=== PATIENT | female | born 1970 | race Caucasian/White ===

== ENCOUNTER 2017-04-26 17:25 | Emergency (ER) | payer SELFPAY ==
[~2017-04-26] VITALS: Ht 170.2 cm; Wt 67.6 kg
[~2017-04-26 17:25] MED LIST: AC500T PO; ACDPT; ACDPT PO; ACHD5005 PO; ALBU8.5H4 IH; AMOX500C2 PO; ASCO1TAB17 PO; ASP81TEC PO; ASPI1TAB22 PO; ATOR20TA66 PO; BENZ-13 PO; CIPR500T78 PO; CPR500T PO; CYCL10TA9 PO; DICY10CA12 PO; DIPH25CA79 PO; DIPH50CA33 PO; HYDR-229 PO; HYDR1TAB PO; HYOS0.1216 PO; METH4TAB PO; MINO100C2 PO; MULT-884 PO; NAPR-243 PO; OMEG-160 PO; ONDA-42 SL; PRAV40TA PO; PRD20T PO; PRM12.5SU RC; PROP20TA5 PO; ROSU20TA14 PO; RT-ALBUINH IH; TRAM50TA2 PO
[2017-04-26] MEDS ORDERED: ACET-2469 PO (18:08)
--- NOTE | 2017-04-26 18:36 | ED Integumentary General ---
General Chief Complaint: Bite-Animal/Human/Insect Stated Complaint: SPIDER BITE UNDER LEFT BREAST Nursing Triage Note: COMPLAINS OF BITE UNDERNEATH LEFT BREAST. STATES IT IS PAINFUL AND CAUSING HER BREAST TO SWELL. FIRST NOTICED IT TODAY. TOOK IBUPROFEN 600MG PO AT 1330. Source: patient Exam Limitations: no limitations History of Present Illness Time seen by provider: 18:19 Initial Comments This 47-year-old woman presents to the emergency room with a painful lesion on the left lower breast that was first noticed this morning. She she also noticed systemic symptoms of feeling flushed, nauseated, and woozy. She believes this may be a spider bite. She denies any fevers. Allergies and Home Medications Allergies Coded Allergies: morphine (Verified Allergy, Intermediate, HIVES, SOA, PANCREAS SHUT DOWN, 02/20/16) egg (Verified Allergy, Unknown, 02/20/16) FROM UNCODED ALLERGY hydromorphone (Verified Allergy, Unknown, 04/26/17) tuberculin, purified protein deriva (Verified Allergy, Unknown, 02/20/16) Home Medications Acetaminophen/Diphenhydramine 1 Each Tablet, 2 EACH PO for SLEEP, (Reported) Sulfamethoxazole/Trimethoprim 1 Each Tablet, 1 EACH PO BID, #20 Prescribed by: ARIELLE TORRES on 04/26/17 1842 Constitutional: see HPI EENTM: no symptoms reported Respiratory: no symptoms reported Cardiovascular: no symptoms reported Gastrointestinal: see HPI Genitourinary: no symptoms reported Musculoskeletal: no symptoms reported Skin: see HPI Psychiatric/Neurological: No Symptoms Reported Past Xxkpjej-[id number]-Lgiynb Hx Patient Social History Alcohol Use: Denies Use Recreational Drug Use: No Smoking Status: Current Everyday Smoker Type Used: Cigarettes Recent Foreign Travel: No Contact w/Someone Who Travel: No Recent Infectious Disease Expo: No Recent Hopitalizations: Yes (2015, EARLY THIS YEAR) Immunizations Up To Date Tetanus Booster (TDap): Unknown PED Vaccines UTD: No Seasonal Allergies Seasonal Allergies: No Surgeries HX Surgeries: Yes (EGD, OVARIAN CYST REMOVAL) Surgeries: Appendectomy, Cardiac, Gallbladder, Hysterectomy, Oophorectomy Respiratory Hx Respiratory Disorders: No Cardiovascular Hx Cardiac Disorders: Yes (CATH corey) Cardiac Disorders: Coronary Artery Disease, High Cholesterol Neurological Hx Neurological Disorders: Yes Neurological Disorders: Headaches /Migraines Reproductive System Hx Reproductive Disorders: Yes (FIBROIDS) Female 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 Genitourinary Hx Genitourinary Disorders: No Gastrointestinal Hx Gastrointestinal Disorders: No Musculoskeletal Hx Musculoskeletal Disorders: No Endocrine Hx Endocrine Disorders: No HEENT HX ENT Disorders: No Cancer Hx Cancer: No Psychosocial Hx Psychiatric Problems: Yes Behavioral Health Disorders: Anxiety Integumentary HX Skin/Integumentary Disorder: No Blood Transfusions Hx Blood Disorders: No Family Medical History Significant Family History: CAD Under 55 Years Old, Diabetes Family Medial History: Cardiovascular disease Coronary thrombosis Physical Exam Vital Signs Vital Sign - Last 12Hours 04/26/17 17:55 Temp 95.7 Pulse 97 Resp 16 B/P (MAP) 170/93 Pulse Ox 99 O2 Delivery Room Air Capillary Refill : Less Than 3 Seconds General Appearance: WD/WN, no apparent distress HEENT: normal ENT inspection Neck: normal inspection Cardiovascular: regular rate, rhythm, no edema, no murmur Respiratory: lungs clear, normal breath sounds, no respiratory distress, no accessory muscle use Extremities: normal inspection 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, no motor/sensory deficits, alert, normal mood/affect, oriented x 3 Skin: warm/dry, other (2-3 cm erythematous tender lesion with a small white center on the lower left breast.) Skin Problem Location: other (left lower breast) Skin Problem Character: blanching, erythema, lesion, tenderness Progress/Results/Core Measures Results/Orders Vital Signs/I&O Vital Sign - Last 12Hours 04/26/17 04/26/17 17:55 18:48 Temp 95.7 Pulse 97 93 Resp 16 16 B/P (MAP) 170/93 Pulse Ox 99 97 O2 Delivery Room Air Blood Pressure Mean: 118 Progress Note : Progress Note The lesion described could be a spider bite or cellulitis. Bedside ultrasound showed a scant amount of fluid a few millimeters beneath the surface but no drainable abscess. The scant fluid could represent simple edema. Patient reports being up-to-date on her immunizations. Departure Impression Impression: Primary Impression: Cellulitis of breast Disposition: 01 HOME, SELF-CARE Condition: Stable Departure-Patient Inst. Decision time for Depature: 18:35 Referrals: [facility] (PCP/Family) Primary Care Physician Patient Instructions: Cellulitis (Skin Infection), Adult (DC), Spider Bites Add. Discharge Instructions: Monitor your wound closely. If you have significantly worsening symptoms, please return to care promptly. If you develop fevers greater than 100 or begin feeling very ill, return to care promptly. Expect the area of erythema to increase somewhat while the antibiotics are taking effect. By 24 hours into your treatment, the affected area should be stable. If an abscess or head develops, warm compresses may help the abscess drain. Complete the entire course of your antibiotics as prescribed. All discharge instructions reviewed with patient and/or family. Voiced understanding. Scripts Sulfamethoxazole/Trimethoprim (Bactrim Ds Tablet) 1 Each Tablet 1 EACH PO BID, #20 TAB Prov: ARIELLE CAMPUZANO MD 04/26/17 ARIELLE CAMPUZANO MD Apr 26, 2017 18:36
[2017-04-26] MEDS ORDERED: SULF1TAB35 PO (18:42)
[2017-04-26 18:48] VITALS: BP 167/97
== END 2017-04-26 18:48 | disposition home or self-care (01) ==
LOC: EDUNIT# 17:25 → ER 17:26
DX: N61.0 Mastitis without abscess (principal); F41.9 Anxiety disorder, unspecified; G43.909 Migraine, unspecified, not intractable, without status migrainosus; I25.10 Atherosclerotic heart disease of native coronary artery without angina pectoris; E78.00 Pure hypercholesterolemia, unspecified; F17.210 Nicotine dependence, cigarettes, uncomplicated; Z90.49 Acquired absence of other specified parts of digestive tract; Z90.710 Acquired absence of both cervix and uterus; Z87.2 Personal history of diseases of the skin and subcutaneous tissue
CPT/HCPCS: 99283

== ENCOUNTER 2018-09-23 10:05 | Emergency (ER) | payer SELFPAY ==
[~2018-09-23] VITALS: Ht 170.2 cm; Wt 67.6 kg
[~2018-09-23 10:05] MED LIST changes: +ACET-2469 PO; +ASPI-789 PO; -ASPI1TAB22 PO; +BENZ100C18 PO; +SULF1TAB35 PO
[2018-09-23] MEDS ORDERED: NS IV 1000 ML 1,000 ML IV ONE (10:51)
[2018-09-23 10:57] LABS: BASOPHILS % (AUTO) 0 % (0-10); EOSINOPHILS # (AUTO) 0.1 10^3/uL (0.0-0.3); EOSINOPHILS % (AUTO) 1 % (0-10); HEMATOCRIT 39 % (35-52); HEMOGLOBIN 13.1 G/DL (11.5-16.0); LYMPHOCYTES # (AUTO) 4.2 X 10^3 (1.0-4.0); LYMPHOCYTES % (AUTO) 41 % (12-44); MEAN CORPUSCULAR HEMOGLOBIN 31 PG (25-34); MEAN CORPUSCULAR HGB CONC 33 G/DL (32-36); MEAN CORPUSCULAR VOLUME 92 FL (80-99); MEAN PLATELET VOLUME 10.7 FL (7.4-10.4); MONOCYTES # (AUTO) 0.7 X 10^3 (0.0-1.0); MONOCYTES % (AUTO) 7 % (0-12); NEUTROPHILS % (AUTO) 50 % (42-75); PLATELET COUNT 361 10^3/uL (130-400); RED BLOOD COUNT 4.26 10^6/uL (4.35-5.85); RED CELL DISTRIBUTION WIDTH 13.4 % (10.0-14.5); WHITE BLOOD COUNT 10.1 10^3/uL (4.3-11.0)
[2018-09-23] MEDS ORDERED: fentaNYL INJECTION 100 MCG/2 ML AMP IVP ONE (11:00)
[2018-09-23] MEDS ORDERED: ONDANSETRON 4 MG/2 ML (SDV) Z0FRAN IVP ONE (11:00)
[2018-09-23 11:09] LABS: ALANINE AMINOTRANSFERASE 17 U/L (0-55); ALBUMIN 4.7 GM/DL (3.2-4.5); ALKALINE PHOSPHATASE 114 U/L (40-136); BILIRUBIN,TOTAL 0.3 MG/DL (0.1-1.0); BUN/CREATININE RATIO 16; CALCIUM 9.8 MG/DL (8.5-10.1); CARBON DIOXIDE 24 MMOL/L (21-32); CHLORIDE 103 MMOL/L (98-107); CREATININE SERUM 0.85 MG/DL (0.60-1.30); GFR ESTIMATED > 60; GLUCOSE 98 MG/DL (70-105); LIPASE 26 U/L (8-78); POTASSIUM 4.2 MMOL/L (3.6-5.0); SODIUM 139 MMOL/L (135-145); TOTAL PROTEIN 8.1 GM/DL (6.4-8.2)
[2018-09-23] MEDS ORDERED: FAMOTIDINE 20MG/2ML IV (PEPCID) IV STA (11:36)
[2018-09-23] MEDS ORDERED: LIDOCAINE 2% VISCOUS 15 ML UDC PO ONE (11:45)
[2018-09-23] MEDS ORDERED: ANTACID SUSP 30 ML UDC (MYLANTA) PO ONE (11:45)
--- NOTE | 2018-09-23 12:55 | ED Abdominal Pain ---
General Chief Complaint: Abdominal/GI Problems Stated Complaint: ABD/BACK PAIN Nursing Triage Note: AMB TO ROOM C/O EPIGASTRIC PAIN SINCE THIS AM. Sepsis Screen: No Definite Risk Source of Information: Patient, Old Records Exam Limitations: No Limitations History of Present Illness Date Seen by Provider: Sep 23, 2018 Time Seen by Provider: 10:09 Initial Comments This 48-year-old woman presents to the emergency room with complaints of upper abdominal pain focused in the epigastric region, nausea and vomiting, and heartburn pain radiating up into the chest. She states this feels similar to when she had pancreatitis. She denies any alcohol consumption. She denies any constipation or diarrhea. She is afebrile. Pain has been present in recent days and became severe this morning. She has history of acid reflux disease but only takes when necessary [id number] medications. She is hollering out because of the pain. Allergies and Home Medications Allergies Coded Allergies: morphine (Verified Allergy, Intermediate, HIVES, SOA, PANCREAS SHUT DOWN, 02/20/16) egg (Verified Allergy, Unknown, 02/20/16) FROM UNCODED ALLERGY hydromorphone (Verified Allergy, Unknown, 04/26/17) tuberculin, purified protein deriva (Verified Allergy, Unknown, 02/20/16) Home Medications Acetaminophen/Diphenhydramine 1 Each Tablet, 2 EACH PO for SLEEP, (Reported) Famotidine 20 Mg Tablet, 20 MG PO BID Prescribed by: ARIELLE TORRES on 09/23/18 1305 Omeprazole 20 Mg Tablet.dr, 20 MG PO DAILY Prescribed by: ARIELLE TORRES on 09/23/18 1305 Ondansetron 4 Mg Tab.rapdis, 4 MG PO Q4H PRN for NAUSEA/VOMITING Prescribed by: ARIELLE TORRSE on 09/23/18 1305 Sulfamethoxazole/Trimethoprim 1 Each Tablet, 1 EACH PO BID Prescribed by: ARIELLE TORRES on 04/26/17 4159 Patient Home Medication List Home Medication List Reviewed: Yes Review of Systems Review of Systems Constitutional: no symptoms reported EENTM: No Symptoms Reported Respiratory: No Symptoms Reported Cardiovascular: No Symptoms Reported Gastrointestinal: See HPI Genitourinary: No Symptoms Reported Musculoskeletal: no symptoms reported Skin: no symptoms reported Psychiatric/Neurological: No Symptoms Reported Endocrine: No Symptoms Reported Hematologic/Lymphatic: No Symptoms Reported Past Ldbtdzj-Neiqyr-[place] Hx Past Med/Social Hx: Reviewed and Corrections made Patient Social History Alcohol Use: Denies Use Recreational Drug Use: No Smoking Status: Current Everyday Smoker Type Used: Cigarettes Recent Foreign Travel: No Contact w/Someone Who Travel: No Recent Infectious Disease Expo: No Recent Hopitalizations: Yes (2016, EARLY THIS YEAR) Immunizations Up To Date Tetanus Booster (TDap): Unknown PED Vaccines UTD: No Seasonal Allergies Seasonal Allergies: No Past Medical History Surgeries: Yes (EGD, OVARIAN CYST REMOVAL) Appendectomy, Cardiac, Gallbladder, Hysterectomy, Oophorectomy Respiratory: No Currently Using CPAP: No Currently Using BIPAP: No Cardiac: Yes (CATH corey) Coronary Artery Disease, High Cholesterol Neurological: Yes Headaches /Migraines Reproductive Disorders: Yes (FIBROIDS) Female 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 0.0oz. 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, no motor/sensory deficits, alert, oriented x 3, other (anxious) Skin: normal color, warm/dry Progress/Results/Core Measures Results/Orders Lab Results Laboratory Tests Test 09/23/18 10:20 Range/Units White Blood Count 10.1 4.3-11.0 10^3/uL Red Blood Count 4.26 L 4.35-5.85 10^6/uL Hemoglobin 13.1 11.5-16.0 G/DL Hematocrit 39 35-52 % Mean Corpuscular Volume 92 80-99 FL Mean Corpuscular Hemoglobin 31 25-34 PG Mean Corpuscular Hemoglobin Concent 33 32-36 G/DL Red Cell Distribution Width 13.4 10.0-14.5 % Platelet Count 361 130-400 10^3/uL Mean Platelet Volume 10.7 H 7.4-10.4 FL Neutrophils (%) (Auto) 50 42-75 % Lymphocytes (%) (Auto) 41 12-44 % Monocytes (%) (Auto) 7 0-12 % Eosinophils (%) (Auto) 1 0-10 % Basophils (%) (Auto) 0 0-10 % Neutrophils # (Auto) 5.0 1.8-7.8 X 10^3 Lymphocytes # (Auto) 4.2 H 1.0-4.0 X 10^3 Monocytes # (Auto) 0.7 0.0-1.0 X 10^3 Eosinophils # (Auto) 0.1 0.0-0.3 10^3/uL Basophils # (Auto) 0.0 0.0-0.1 10^3/uL Sodium Level 139 135-145 MMOL/L Potassium Level 4.2 3.6-5.0 MMOL/L Chloride Level 103 98-107 MMOL/L Carbon Dioxide Level 24 21-32 MMOL/L Anion Gap 12 5-14 MMOL/L Blood Urea Nitrogen 14 7-18 MG/DL Creatinine 0.85 0.60-1.30 MG/DL Estimat Glomerular Filtration Rate > 60 BUN/Creatinine Ratio 16 Glucose Level 98 70-105 MG/DL Calcium Level 9.8 8.5-10.1 MG/DL Corrected Calcium 8.5-10.1 MG/DL Total Bilirubin 0.3 0.1-1.0 MG/DL Aspartate Amino Transf (AST/SGOT) 24 5-34 U/L Alanine Aminotransferase (ALT/SGPT) 17 0-55 U/L Alkaline Phosphatase 114 40-136 U/L Total Protein 8.1 6.4-8.2 GM/DL Albumin 4.7 H 3.2-4.5 GM/DL Lipase 26 8-78 U/L My Orders Orders - ARIELLE CAMPUZANO MD Cbc With Automated Diff (12/26/18 10:51) Comprehensive Metabolic Panel (09/23/18 10:51) Lipase (09/23/18 10:51) Saline Lock/Iv-Start (09/23/18 10:51) Ns Iv 1000 Ml (Sodium Chloride 0.9%) (09/23/18 10:51) Fentanyl Injection (Sublimaze Injection (09/23/18 11:00) Ondansetron Injection (Zofran Injectio (09/23/18 11:00) Lidocaine 2% Viscous 15 Ml (Xylocaine Vi (09/23/18 11:45) Famotidine Injection (Pepcid Injection) (09/23/18 11:36) Antacid Suspension (Mylanta Suspension (09/23/18 11:45) Medications Given in ED Vital Signs/I&O 09/23/18 09/23/18 10:12 13:09 Temp 96.6 Pulse 103 89 Resp 18 18 B/P (MAP) 139/98 (112) 142/89 (106) Pulse Ox 100 98 O2 Delivery Room Air Blood Pressure Mean: 112 Progress Progress Note : Progress Note Patient was initially treated with fentanyl, Zofran, and IV normal saline. The labs were grossly unremarkable. Fentanyl resolve the pain but tenderness was still present on repeat examination. GI cocktail and Pepcid were then given. This resolved her tenderness. See discharge instructions. Departure Impression Primary Impression: Epigastric pain Additional Impression: Nausea and vomiting Qualified Codes: R11.2 - Nausea with vomiting, unspecified Disposition: 01 HOME, SELF-CARE Condition: Against Medical Advice Departure-Patient Inst. Referrals: [facility] (PCP/Family) Primary Care Physician Patient Instructions: Acute Abdomen (Belly Pain), Adult (DC), Gastritis (DC) Add. Discharge Instructions: Use omeprazole and Pepcid as prescribed. Follow-up with your primary care provider soon as possible. Please call today to schedule an appointment. Return to care promptly if you have worsening symptoms. Avoid the following: Eating close to bedtime, eating large meals, caffeine, carbonation, chocolate, citrus fruits and juices, tomato products, tobacco products, alcohol, mints, fatty or greasy foods, spicy foods, NSAID medications such as ibuprofen or naproxen, and anything else you know irritates your stomach. All discharge instructions reviewed with patient and/or family. Voiced understanding. Scripts Omeprazole (Omeprazole) 20 Mg Tablet. 20 MG PO DAILY, #30 TAB Prov: ARIELLE CAMPUZANO MD 09/23/18 Ondansetron (Ondansetron Odt) 4 Mg Tab.rapdis 4 MG PO Q4H PRN for NAUSEA/VOMITING, #10 TAB Prov: ARIELLE CAMPUZANO MD 09/23/18 Famotidine (Pepcid) 20 Mg Tablet 20 MG PO BID, #60 TAB Prov: ARIELLE CAMPUZANO MD 09/23/18 Copy Copies To 1: EUGENE GIL JOSHUA T MD Sep 23, 2018 12:55
[2018-09-23] MEDS ORDERED: ONDA4TAB11 PO (13:05)
[2018-09-23] MEDS ORDERED: FAMO-119 PO (13:05)
[2018-09-23] MEDS ORDERED: OMEP20TA7 PO (13:05)
[2018-09-23 13:09] VITALS: BP 142/89
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
== END 2018-09-23 13:09 | disposition home or self-care (01) ==
LOC: EDUNIT# 10:05 → ER 10:07
DX: R10.13 Epigastric pain (principal); R11.2 Nausea with vomiting, unspecified; K21.9 Gastro-esophageal reflux disease without esophagitis; F17.210 Nicotine dependence, cigarettes, uncomplicated; I25.10 Atherosclerotic heart disease of native coronary artery without angina pectoris; E78.00 Pure hypercholesterolemia, unspecified; G43.909 Migraine, unspecified, not intractable, without status migrainosus; F41.9 Anxiety disorder, unspecified; Z90.710 Acquired absence of both cervix and uterus; Z90.49 Acquired absence of other specified parts of digestive tract; Z88.5 Allergy status to narcotic agent; Z88.8 Allergy status to other drugs, medicaments and biological substances; Z91.012 Allergy to eggs
CPT/HCPCS: 36415; 80053; 83690; 85025; 96374; 96375

== ENCOUNTER 2018-12-27 18:53 | Emergency (ER) | payer OTHER ==
[~2018-12-27] VITALS: Ht 170.2 cm; Wt 67.6 kg
[~2018-12-27 18:53] MED LIST changes: +FAMO-119 PO; +OMEP20TA7 PO; +ONDA4TAB11 PO
[2018-12-27] MEDS ORDERED: KETOROLAC 30 MG/ML VIAL IVP STA (19:15)
[2018-12-27] MEDS ORDERED: ORPHENADRINE 60 MG/2 ML (NORFLEX) AMP IV STA (19:15)
--- NOTE | 2018-12-27 19:53 | Diagnostic Imaging Report ---
PROCEDURE: CT cervical spine without contrast. TECHNIQUE: Multiple contiguous axial images were obtained through the cervical spine without the use of intravenous contrast. Sagittal and coronal reformations were then performed. Auto Exposure Controls were utilized during the CT exam to meet ALARA standards for radiation dose reduction. INDICATION: Neck pain and stiffness There is normal height and alignment of the cervical vertebral bodies. There is disc space narrowing and mild spondylosis at C5-6. No disc herniation or central canal stenosis is seen at any level. There is some foraminal narrowing bilaterally at C5-6 and on the left at C4-5. There is no fracture. IMPRESSION: There are degenerative changes present with spondylosis causing bilateral foraminal narrowing at C5-6 and left foraminal narrowing at C4-5. Dictated by: Dictated on workstation # [id number]
--- NOTE | 2018-12-27 20:03 | Diagnostic Imaging Report ---
PROCEDURE: CT thoracic and lumbar spine without contrast. TECHNIQUE: Multiple contiguous axial images were obtained through the thoracic and lumbar spine without the use of intravenous contrast. Sagittal and coronal reformations were then performed. INDICATION: Back pain There is normal height and alignment of the thoracolumbar vertebral bodies. There is mild disc space narrowing at L2-3 through L4-5. No disc herniation or bony stenosis is evident at this or any other level. There is no fracture. There is no bony lesion. There is no soft tissue mass. IMPRESSION: There are mild degenerative changes in the lumbar spine with no acute abnormality seen. Dictated by: Dictated on workstation # [id number]
[2018-12-27] MEDS ORDERED: RX-CYCLOBENZAPRINE 10 MG (FLEXERIL) TAB PPK#3 PO STA (20:22)
[2018-12-27] MEDS ORDERED: RX-TRAMADOL 50 MG (ULTRAM) TAB PPK#4 PO STA (20:22)
[2018-12-27] MEDS ORDERED: METH4TAB PO (20:29)
[2018-12-27] MEDS ORDERED: TRAM-42 PO (20:29)
[2018-12-27] MEDS ORDERED: CYCL10TA9 PO (20:29)
--- NOTE | 2018-12-27 20:29 | ED Neck-Back Pain/Injury ---
General Chief Complaint: Head/Cervical Problems Stated Complaint: NECK/SPINAL PAIN,MIGRAINE Nursing Triage Note: pt had right upper back muscle spasms over the past few days. during the night last night she turned over in bed et had severe neck pain. with certain movement today, she has shocking sensation up et down spine. hx degenerative disc disease in neck. tingling in right leg et hands Nursing Sepsis Screen: No Definite Risk Allergies and Home Medications Allergies Coded Allergies: morphine (Verified Allergy, Intermediate, HIVES, SOA, PANCREAS SHUT DOWN, 02/20/16) egg (Verified Allergy, Unknown, 02/20/16) FROM UNCODED ALLERGY hydromorphone (Verified Allergy, Unknown, 04/26/17) tuberculin, purified protein deriva (Verified Allergy, Unknown, 02/20/16) Home Medications Acetaminophen/Diphenhydramine 1 Each Tablet, 2 EACH PO for SLEEP, (Reported) Famotidine 20 Mg Tablet, 20 MG PO BID Prescribed by: ARIELLE TORRES on 09/23/18 1305 Omeprazole 20 Mg Tablet.dr, 20 MG PO DAILY Prescribed by: ARIELLE TORRES on 09/23/18 1305 Ondansetron 4 Mg Tab.rapdis, 4 MG PO Q4H PRN for NAUSEA/VOMITING Prescribed by: ARIELLE TORRES on 09/23/18 1305 Sulfamethoxazole/Trimethoprim 1 Each Tablet, 1 EACH PO BID Prescribed by: ARIELLE TORRES on 04/26/17 1842 Past Xeqvimg-Fhrvms-Unhogc Hx Patient Social History Alcohol Use: Denies Use Recreational Drug Use: No Smoking Status: Current Everyday Smoker Type Used: Cigarettes Recent Foreign Travel: No Contact w/Someone Who Travel: No Recent Infectious Disease Expo: No Recent Hopitalizations: No Immunizations Up To Date Tetanus Booster (TDap): Unknown PED Vaccines UTD: No Seasonal Allergies Seasonal Allergies: No Past Medical History Surgeries: Yes (EGD, OVARIAN CYST REMOVAL) Appendectomy, Cardiac, Gallbladder, Hysterectomy, Oophorectomy Respiratory: No Currently Using CPAP: No Currently Using BIPAP: No Cardiac: Yes (CATH corey) Coronary Artery Disease, Heart Attack, High Cholesterol Neurological: Yes Headaches /Migraines Reproductive Disorders: Yes (FIBROIDS) Female 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 0.0oz. 67.859147el; 24.4 BMI Method:Stated Progress/Results/Core Measures Results/Orders My Orders Orders - MICHAEL SHAFER DO Saline Lock/Iv-Start (12/27/18 19:15) Ketorolac Injection (Toradol Injection) (12/27/18 19:15) Orphenadrine Injection (Norflex Injectio (12/27/18 19:15) Ct Cervical Spine Wo (12/27/18 19:15) Ct Thoracic/Lumbar Spine Wo (12/27/18 ) Rx-Cyclobenzaprine Tablet (Rx-Flexeril T (12/27/18 20:22) Rx-Tramadol Hcl (Rx-Ultram) (12/27/18 20:22) Prednisone Tablet (Deltasone Tablet) (12/27/18 20:30) Vital Signs/I&O 12/27/18 19:07 Temp 98.2 Pulse 114 Resp 16 B/P (MAP) 157/89 (111) Pulse Ox 96 O2 Delivery Room Air Blood Pressure Mean: 111 Departure Impression Primary Impression: NECK AND BACK PAIN AND MUSCLE SPASMS Disposition: 01 HOME, SELF-CARE Condition: Stable Departure-Patient Inst. Referrals: [facility] (PCP) Primary Care Physician OSWMYA ESQUEDA (Family) Primary Care Physician Patient Instructions: Chronic Neck Pain (DC), Low Back Pain (DC), Muscle Spasms (DC) Add. Discharge Instructions: MOIST HEAT TO SORE AREAS AT 20 MINUTE INTERVALS ACTIVITIES TOLERATED FOLLOW UP WITH YOUR DR IN 2-3 DAYS IF NO BETTER All discharge instructions reviewed with patient and/or family. Voiced understanding. Scripts Tramadol HCl (Ultram) 50 Mg Tablet 50 MG PO Q4H, #20 TAB Prov: MICHAEL SHAFER DO 12/27/18 Methylprednisolone (Medrol) 4 Mg Tab.ds.pk 4 MG PO UD, #1 PKG Prov: MICHAEL SHAFER DO 12/27/18 Cyclobenzaprine HCl (Cyclobenzaprine HCl) 10 Mg Tablet 10 MG PO Q8H, #15 TAB Prov: MICHAEL SHAFER DO 12/27/18 MICHAEL SHAFER DO Dec 27, 2018 20:29
[2018-12-27] MEDS ORDERED: predniSONE 20 MG TAB PO ONE (20:30)
[2018-12-27 20:40] VITALS: BP 169/89
== END 2018-12-27 20:40 | disposition home or self-care (01) ==
LOC: EDUNIT# 18:53 → ER 18:55
DX: M54.2 Cervicalgia (principal); M62.830 Muscle spasm of back; I25.10 Atherosclerotic heart disease of native coronary artery without angina pectoris; I25.2 Old myocardial infarction; E78.00 Pure hypercholesterolemia, unspecified; G43.909 Migraine, unspecified, not intractable, without status migrainosus; F41.9 Anxiety disorder, unspecified; K21.9 Gastro-esophageal reflux disease without esophagitis; F17.210 Nicotine dependence, cigarettes, uncomplicated; Z88.5 Allergy status to narcotic agent; Z82.49 Family history of ischemic heart disease and other diseases of the circulatory system; Z87.19 Personal history of other diseases of the digestive system; Z87.448 Personal history of other diseases of urinary system; Z95.9 Presence of cardiac and vascular implant and graft, unspecified; Z88.8 Allergy status to other drugs, medicaments and biological substances; Z98.890 Other specified postprocedural states; Z90.49 Acquired absence of other specified parts of digestive tract; Z90.710 Acquired absence of both cervix and uterus
CPT/HCPCS: 72125; 72128; 72131; 96374

== ENCOUNTER 2019-05-09 11:11 | Emergency (ER) | payer OTHER ==
[~2019-05-09] VITALS: Ht 170.2 cm; Wt 67.6 kg
[~2019-05-09 11:11] MED LIST changes: +TRAM-42 PO
--- OUTSIDE RECORDS SUMMARY | 2019-05-09 11:17 | XMS REPORT ---
Author Author Migration, Doctor Organization [facility] Address Unknown Phone Unavailable Care Team Providers Care Sales Developer Name Role Phone Migration, Doctor Unavailable Unavailable PROBLEMS Type Condition ICD9-CM Code [id number] Code Onset Dates Condition Status SNOMED Code Problem Family history of diabetes mellitus V18.0 Active 613903272 Problem Coronary artery disease involving lower brule coronary artery of lower brule heart, angina presence unspecified I25.10 Active 2553633288847 Problem Other, multiple, and unspecified sites, insect bite, nonvenomous, without mention of infection 919.4 Active 744418713 Problem Family history of other cardiovascular diseases V17.49 Active 280174709 Problem Cough 786.2 Active 19123243 Problem Abdominal pain, generalized 789.07 Active 841518823 Problem Unspecified pruritic disorder 698.9 Active 856671282 Problem Symptomatic menopausal or female climacteric states 627.2 Active 74282685 Problem Urinary tract infection, site not specified 599.0 Active 96046955 Problem Other and unspecified hyperlipidemia 272.4 Active 01626312 Problem Fever, unspecified 780.60 Active 863317317 Problem Scabies 133.0 Active 419568829 Problem Palpitations 785.1 Active 63382628 Problem Coronary atherosclerosis of unspecified type of vessel, lower brule or graft 414.00 Active 078349170 Problem Other and unspecified angina pectoris 413.9 Active 306057537 Problem Migraine with aura, without mention of intractable migraine without mention of status migrainosus 346.00 Active 9498477 Problem Persistent disorder of initiating or maintaining sleep 307.42 Active 39232759 ALLERGIES No Information ENCOUNTERS Encounter Location Date Diagnosis [facility] [address] [address] Feb, [facility] [address] [address] January, [facility] [id number] [address] Mar, [facility] [place] [facility] [address] [id number] [place] [address] 14 Dec, 2014 [facility] [place] [facility] [address] [id number] [place] [address] 13 Dec, 2014 [facility] [place] [facility] [address] [id number] [place] [address] 19 Aug, 2014 [facility] [place] [facility] [address] [id number] [place] [address] Aug, [facility] [place] [facility] [address] [id number] [place] [address] 16 Aug, 2014 [facility] [place] [facility] [address] [id number] [place] [address] Aug, [facility] [place] [facility] [address] [id number] [place] [address] Aug, [facility] [place] [facility] [address] [id number] [place] [address] Jun, [facility] [place] [facility] [address] [id number] [place] [address] Jun, [facility] [place] [facility] [address] [id number] [place] [address] Jun, [facility] [place] [facility] [address] [id number] [place] [address] Jun, [facility] [place] [facility] [address] [id number] [place] [address] May, [facility] [place] [facility] [address] [id number] [place] [address] 11 May, 2014 [facility] [place] [facility] [address] [id number] [place] [address] Mar, [facility] [place] [facility] [address] [id number] [place] [address] Mar, [facility] [place] [facility] [address] [id number], [place] [address] Mar, [facility] [address] [facility] [place] [place] [id number] [place] [address] January, [facility] [address] [facility] [place] [id number], [place] [address] January, [facility] [address] [facility] [place] [id number] [place] [address] January, [facility] [address] [facility] [place] [id number] [address] January, [facility] [address] [facility] [place] [id number] [place] [address] January, [facility] [address] [facility] [place] [id number], [place] [address] Jul, [facility] [id number] [address] Jul, [facility] [address] [facility] [place] [id number], [place] [address] May, [facility] [address] [facility] [place] [id number], [place] [address] May, [facility] [address] [facility] [place] [id number], [place] [address] May, [facility] [address] [facility] [place] [id number], [place] [address] May, [facility] [address] [facility] [place] [id number] [address] May, [facility] [address] [facility] [place] [id number][place] [address] Apr, [facility] [address] [facility] [place] [id number][place] [address] Feb, [facility] [address] [facility] [place] [id number] [address] 14 Feb, 2013 IMMUNIZATIONS No Known Immunizations SOCIAL HISTORY Never Assessed REASON FOR VISIT [facility] PLAN OF CARE VITAL SIGNS MEDICATIONS Unknown Medications RESULTS No Results PROCEDURES No Known procedures INSTRUCTIONS MEDICATIONS ADMINISTERED No Known Medications MEDICAL (GENERAL) HISTORY Type Description Date Hospitalization History Chest pain 02/20/16
--- OUTSIDE RECORDS SUMMARY | 2019-05-09 11:17 | XMS REPORT ---
Author Author Migration, Doctor Organization [facility] Address Unknown Phone Unavailable Care Team Providers Care Plate Filler Name Role Phone Migration, Doctor Unavailable Unavailable PROBLEMS Type Condition ICD9-CM Code [id number] Code Onset Dates Condition Status SNOMED Code Problem Family history of diabetes mellitus V18.0 Active 000666483 Problem Coronary artery disease involving wrangell coronary artery of wrangell heart, angina presence unspecified I25.10 Active 3564455248768 Problem Other, multiple, and unspecified sites, insect bite, nonvenomous, without mention of infection 919.4 Active 918172776 Problem Family history of other cardiovascular diseases V17.49 Active 835853093 Problem Cough 786.2 Active 61253276 Problem Abdominal pain, generalized 789.07 Active 153606060 Problem Unspecified pruritic disorder 698.9 Active 204840887 Problem Symptomatic menopausal or female climacteric states 627.2 Active 47586838 Problem Urinary tract infection, site not specified 599.0 Active 29734667 Problem Other and unspecified hyperlipidemia 272.4 Active 04549077 Problem Fever, unspecified 780.60 Active 170999849 Problem Scabies 133.0 Active 482219651 Problem Palpitations 785.1 Active 20309713 Problem Coronary atherosclerosis of unspecified type of vessel, wrangell or graft 414.00 Active 225601133 Problem Other and unspecified angina pectoris 413.9 Active 447782233 Problem Migraine with aura, without mention of intractable migraine without mention of status migrainosus 346.00 Active 2114293 Problem Persistent disorder of initiating or maintaining sleep 307.42 Active 01617013 ALLERGIES Substance Reaction Event Type Date Status Morphine Unknown Drug Allergy Dec, Active ENCOUNTERS Encounter Location Date Diagnosis [facility] [address] [address] Feb, [facility] [id number] [address] January, [facility] [address] [address] 16 Mar, 2015 [facility] [place] [facility] [address] [id number] [place] [address] 14 Dec, 2014 [facility] [place] [facility] [address] [id number] [place] [address] 13 Dec, 2014 [facility] [place] [facility] [address] [id number] [place] [address] 19 Aug, 2014 [facility] [place] [facility] [address] [id number] [place] [address] 19 Aug, 2014 [facility] [place] [facility] [address] [id number] [place] [address] 16 Aug, 2014 [facility] [place] [facility] [address] [id number] [place] [address] 15 Aug, 2014 [facility] [place] [facility] [address] [id number] [place] [address] Aug, [facility] [place] [facility] [address] [id number] [place] [address] Jun, [facility] [place] [facility] [address] [id number] [place] [address] Jun, [facility] [place] [facility] [address] [id number] [place] [address] Jun, [facility] [place] [facility] [address] [id number] [place] [address] Jun, [facility] [place] [facility] [address] [id number] [place] [address] May, [facility] [place] [facility] [address] [id number] [place] [address] May, [facility] [place] [facility] [address] [id number] [place] [address] Mar, [facility] [place] [facility] [address] [facility] [id number] [place] [address] Mar, [facility] [place] [facility] [address] [id number] [place] [address] 08 Mar, 2014 [facility] [place] [facility] [address] [id number] [place] [address] January, [facility] [place] [facility] [address] [id number] [place] [address] January, [facility] [place] [facility] [address] [id number] [place] [address] January, [facility] [place] [facility] [address] [id number] [place] [address] January, [facility] [place] [facility] [address] [id number] [place] [address] January, [facility] [place] [facility] [address] [id number] [place] [address] Jul, [facility] [place] [facility] [address] [id number] [place] [address] Jul, [facility] [place] [facility] [address] [id number] [place] [address] May, [facility] [place] [facility] [address] [id number] [place] [address] May, [facility] [place] [facility] [address] [id number] [place] [address] 09 May, 2013 [facility] [place] [facility] [address] [id number] [place] [address] 06 May, 2013 [facility] [place] [facility] [address] [id number] [place] [address] 04 May, 2013 [facility] [place] [facility] [address] [id number] [place] [address] 08 Apr, 2013 [facility] [place] [facility] [address] [id number] [place] [address] Feb, [facility] [place] [facility] [address] [id number] [place] [address] Feb, IMMUNIZATIONS No Known Immunizations SOCIAL HISTORY Never Assessed REASON FOR VISIT [facility] [place] PLAN OF CARE VITAL SIGNS MEDICATIONS Medication Instructions Dosage Frequency Start Date End Date Duration Status Topamax 50 mg 1 Tablet by Oral route 2 times per day for headache Aug, Active Fioricet 50-325-40 mg 1-2 tablet by Oral route every 6 hours PRN not to exceed 6 tablets/day, 10/week Aug, Active PredniSONE 20 mg 3 tablet by Oral route 1 time per day for 5 day(s) Feb, Active Aspirin 81 mg 1 tablet by Oral route 1 time per day May, Active Elimite 5 % apply 1 Jose from head to soles of feet by Topical route once 1 time per week leave on for 8-14 hours and then wash thoroughly for 2 dose(s) Feb, Active Cipro 500 mg 1 tablet by Oral route every 12 hours for 5 day(s) antibiotic January, Active Crestor 40 mg take 1 tablet (40 mg) by oral route once daily at bedtime Jun, Active Fish Oil by oral route 2 a day May, Active Effexor XR 75 mg 1 capsule by Oral route 1 time per day Jun, Active Polytrim 0.1-10,000 %-unit/mL 2-3 drop by Otic route every 6 hours for 7 day(s) Do not fill until pt calls- use in left ear Feb, Active RESULTS No Results PROCEDURES No Known procedures INSTRUCTIONS MEDICATIONS ADMINISTERED No Known Medications MEDICAL (GENERAL) HISTORY Type Description Date Hospitalization History Chest pain 02/20/16
--- OUTSIDE RECORDS SUMMARY | 2019-05-09 11:17 | XMS REPORT ---
Author Author Migration, Doctor Organization [facility] Address Unknown Phone Unavailable Care Team Providers Care Linotyper Name Role Phone Migration, Doctor Unavailable Unavailable PROBLEMS Type Condition ICD9-CM Code SCG14-LI Code Onset Dates Condition Status SNOMED Code Problem Family history of diabetes mellitus V18.0 Active 047154523 Problem Coronary artery disease involving navajo coronary artery of navajo heart, angina presence unspecified I25.10 Active 4403583820829 Problem Other, multiple, and unspecified sites, insect bite, nonvenomous, without mention of infection 919.4 Active 831177078 Problem Family history of other cardiovascular diseases V17.49 Active 824608236 Problem Cough 786.2 Active 78667952 Problem Abdominal pain, generalized 789.07 Active 916896290 Problem Unspecified pruritic disorder 698.9 Active 680369201 Problem Symptomatic menopausal or female climacteric states 627.2 Active 79432517 Problem Urinary tract infection, site not specified 599.0 Active 38801316 Problem Other and unspecified hyperlipidemia 272.4 Active 44578305 Problem Fever, unspecified 780.60 Active 873435152 Problem Scabies 133.0 Active 092230461 Problem Palpitations 785.1 Active 50269101 Problem Coronary atherosclerosis of unspecified type of vessel, navajo or graft 414.00 Active 168579556 Problem Other and unspecified angina pectoris 413.9 Active 111086648 Problem Migraine with aura, without mention of intractable migraine without mention of status migrainosus 346.00 Active 6483737 Problem Persistent disorder of initiating or maintaining sleep 307.42 Active 54187694 ALLERGIES No Information ENCOUNTERS Encounter Location Date Diagnosis [facility] [address], [place] [address] Feb, [facility] [address], [place] [address] January, [facility] [id number], [place] [address] Mar, [facility] [place] [facility] [address] [id number] [place] [address] 14 Dec, 2014 [facility] [place] [facility] [address] [id number] [place] [address] 13 Dec, 2014 [facility] [place] [facility] [address] [id number] [place] [address] 19 Aug, 2014 [facility] [place] [facility] [address] [id number] [place] [address] Aug, [facility] [place] [facility] [address] [id number] [place] [address] 16 Aug, 2014 [facility] [place] [facility] [address] [id number] [place] [address] Aug, [facility] [place] [facility] [address] [id number] [place] [address] Aug, [facility] [place] [facility] [address] [id number] [place] [address] Jun, [facility] [place] [facility] [address] [id number] [place] [address] Jun, [facility] [place] [facility] [address] [id number] [place] [address] Jun, [facility] [place] [facility] [address] [id number] [place] [address] Jun, [facility] [place] [facility] [address] [id number] [place] [address] May, [facility] [place] [facility] [address] [id number] [place] [address] 11 May, 2014 [facility] [place] [facility] [address] [id number] [place] [address] Mar, [facility] [place] [facility] [address] [id number] [place] [address] Mar, [facility] [place] [facility] [address] [id number] [address] Mar, [facility] [address] [facility] [id number] [place] [address] January, [facility] [address] [facility] [id number] [address] January, [facility] [address] [facility] [id number] [place] [address] January, [facility] [address] [facility] [id number], [place] [address] January, [facility] [address] [facility] [id number] [place] [address] January, [facility] [address] [facility] [id number], [place] [address] Jul, [facility] [id number], [place] [address] Jul, [facility] [address] [facility] [id number], [place] [address] May, [facility] [address] [facility] [id number] [address] May, [facility] [address] [facility] [id number], [place] [address] May, [facility] [address] [facility] [id number] [address] May, [facility] [address] [facility] [id number], [place] [address] May, [facility] [address] [facility] [id number], [place] [address] Apr, [facility] [address] [facility] [id number], [place] [address] Feb, [facility] [address] [facility] [id number], [place] [address] 14 Feb, 2013 IMMUNIZATIONS No Known Immunizations SOCIAL HISTORY Never Assessed REASON FOR VISIT [facility] [place] PLAN OF CARE VITAL SIGNS MEDICATIONS Unknown Medications RESULTS No Results PROCEDURES No Known procedures INSTRUCTIONS MEDICATIONS ADMINISTERED No Known Medications MEDICAL (GENERAL) HISTORY Type Description Date Hospitalization History Chest pain 02/20/16
--- OUTSIDE RECORDS SUMMARY | 2019-05-09 11:19 | XMS REPORT | Continuity of Care Document ---
Author Organization Unknown Address Unknown Phone Unavailable Allergies Active Description Code Type Severity Reaction Onset Reported/Identified Relationship to Patient Clinical Status Yes morphine Drug Allergy N/A N/A 03/12/2013 Yes morphine [id number] Drug Allergy Moderate HIVES, SOA, MARTINEZ 02/20/2016 Yes egg [id number] Drug Allergy Unknown N/A 02/20/2016 Yes tuberculin, purified protein deriva [id number] Drug Allergy Unknown N/A 02/20/2016 Yes tuberculin,purif.prot.deriv. [id number] Drug Allergy Unknown N/A 02/20/2016 Yes hydromorphone [id number] Drug Allergy Unknown N/A 04/26/2017 Medications There is no data. Problems Date [...] EXAM, ROUTINE, AT HEALTH CARE FACILITY 10/13/2008 BULMARO ESQUEDA APRNNDA S V74.1 SCREENING EXAMINATION FOR PULMONARY TUBERCULOSIS 10/13/2008 SOWMYA ESQUEDA APRN S V70.0 GENERAL MEDICAL EXAM, ROUTINE, AT HEALTH CARE FACILITY 10/13/2008 BULMARO ESQUEDA APRNNDA S V74.1 SCREENING EXAMINATION FOR PULMONARY TUBERCULOSIS 10/13/2008 YIN CARTER, SOWMYA S V70.0 GENERAL MEDICAL EXAM, ROUTINE, AT HEALTH CARE FACILITY 10/13/2008 SOWMYA ESQUEDA APRN S V74.1 SCREENING EXAMINATION FOR PULMONARY TUBERCULOSIS 05/19/2010 Ot 272.4 HYPERLIPIDEMIA NEC/NOS 05/19/2010 Ot 305.1 TOBACCO USE DISORDER 05/19/2010 Ot 414.01 CORONARY ATHEROSCLEROSIS OF [place] CORON 05/19/2010 Ot 786.59 CHEST PAIN NEC 05/19/2010 Ot V17.3 FAM HX-ISCHEM HEART DIS 05/20/2010 Ot 789.03 ABDOMINAL PAIN, RIGHT LOWER QUADRANT 05/20/2010 Ot V45.89 POSTSURGICAL STATES NEC 08/23/2011 Ot 846.0 SPRAIN LUMBOSACRAL 08/23/2011 Ot 847.0 SPRAIN OF NECK 08/23/2011 Ot 847.1 SPRAIN THORACIC REGION 08/23/2011 Ot 920 CONTUSION FACE/SCALP/NCK 08/23/2011 Ot 959.01 HEAD INJURY, NOS 08/23/2011 Ot E000.8 OTHER EXTERNAL CAUSE STATUS 08/23/2011 Ot E812.1 MV COLLISION NOS-PASNGR 01/25/2012 Ot 346.90 MIGRAINE UNSPECIFIED W/O INTRACT MGRN W/ 01/25/2012 Ot 461.9 ACUTE SINUSITIS NOS 01/25/2012 Ot 784.0 HEADACHE 02/16/2012 Ot 466.0 ACUTE BRONCHITIS 02/16/2012 Ot 786.2 COUGH 03/25/2012 Ot 719.43 JOINT PAIN-FOREARM 03/25/2012 Ot 727.05 TENOSYNOV HAND/WRIST NEC 05/06/2012 [...] SCABIES 03/12/2013 698.9 PRURITUS NOS 03/12/2013 YIN COMPETENCY EVALUATED NURSE AIDE, SOWMYA S 133.0 SCABIES 03/12/2013 YIN CARTER, SOWMYA S 698.9 PRURITUS NOS 03/12/2013 GIL DO, EUGENE K 133.0 SCABIES 03/12/2013 GIL DO, EUGENE K 698.9 PRURITUS NOS 03/12/2013 ELIF COMPETENCY EVALUATED NURSE AIDE, KOREY R 133.0 SCABIES 03/12/2013 ELIF COMPETENCY EVALUATED NURSE AIDE, KOREY R 698.9 PRURITUS NOS 03/12/2013 YIN COMPETENCY EVALUATED NURSE AIDE, SOWMYA S 133.0 SCABIES 03/12/2013 YIN COMPETENCY EVALUATED NURSE AIDE, SOWMYA S 698.9 PRURITUS NOS 03/12/2013 YIN COMPETENCY EVALUATED NURSE AIDE, SOWMYA S 133.0 SCABIES 03/12/2013 YIN COMPETENCY EVALUATED NURSE AIDE, SOWMYA S 698.9 PRURITUS NOS 03/12/2013 YIN COMPETENCY EVALUATED NURSE AIDE, SOWMYA S 133.0 SCABIES 03/12/2013 YIN COMPETENCY EVALUATED NURSE AIDE, SOWMYA S 698.9 PRURITUS NOS 03/12/2013 YIN COMPETENCY EVALUATED NURSE AIDE, SOWMYA S 133.0 SCABIES 03/12/2013 YIN COMPETENCY EVALUATED NURSE AIDE, SOWMYA S 698.9 PRURITUS NOS 03/15/2013 919.4 INSECT BITE NONVENOMOUS OF OTHER MULTIPLE AND UNSPECIFIED SITES WITHOUT INFECTION 03/15/2013 919.4 INSECT BITE NONVENOMOUS OF OTHER MULTIPLE AND UNSPECIFIED SITES WITHOUT INFECTION 03/15/2013 YIN COMPETENCY EVALUATED NURSE AIDE, SOWMYA S 919.4 INSECT BITE NONVENOMOUS OF OTHER MULTIPLE AND UNSPECIFIED SITES WITHOUT INFECTION 03/15/2013 GIL DO, EUGENE K 919.4 INSECT BITE NONVENOMOUS OF OTHER MULTIPLE AND UNSPECIFIED SITES WITHOUT INFECTION 03/15/2013 ELIF COMPETENCY EVALUATED NURSE AIDE, KOREY R 919.4 INSECT BITE NONVENOMOUS OF OTHER MULTIPLE AND UNSPECIFIED SITES WITHOUT INFECTION 03/15/2013 YIN COMPETENCY EVALUATED NURSE AIDE, SOWMYA S 919.4 INSECT BITE NONVENOMOUS OF OTHER MULTIPLE AND UNSPECIFIED SITES WITHOUT INFECTION 03/15/2013 YIN COMPETENCY EVALUATED NURSE AIDE, SOWMYA S 919.4 INSECT BITE NONVENOMOUS OF OTHER MULTIPLE AND UNSPECIFIED SITES WITHOUT INFECTION 03/15/2013 YIN COMPETENCY EVALUATED NURSE AIDE, SOWMYA S 919.4 INSECT BITE NONVENOMOUS OF OTHER MULTIPLE AND UNSPECIFIED SITES WITHOUT INFECTION 03/15/2013 YIN COMPETENCY EVALUATED NURSE AIDE, SOWMYA S 919.4 INSECT BITE NONVENOMOUS OF OTHER MULTIPLE AND UNSPECIFIED SITES WITHOUT INFECTION 04/08/2013 ELIZABETH PUTNAM L Ot 346.90 MIGRAINE UNSPECIFIED W/O INTRACT MGRN W/ 04/08/2013 ELIZABETH PUTNAM L Ot 784.0 HEADACHE 05/06/2013 346.00 MIGRAINE WITH AURA WITHOUT MENTION OF INTRACTABLE MIGRAINE WITHOUT MENTION OF STATUS MIGRAINOSUS 05/06/2013 413.9 ANGINA NOS 05/06/2013 V17.49 FAMILY HISTORY OF OTHER CARDIOVASCULAR DISEASES 05/06/2013 V18.0 FAMILY HISTORY OF DIABETES MELLITUS 05/06/2013 YIN CARTER SOWMYA S 346.00 MIGRAINE WITH AURA WITHOUT MENTION OF INTRACTABLE MIGRAINE WITHOUT MENTION OF STATUS MIGRAINOSUS 05/06/2013 YIN COMPETENCY EVALUATED NURSE AIDE, SOWMYA S 413.9 ANGINA NOS 05/06/2013 YIN COMPETENCY EVALUATED NURSE AIDE, SOWMYA S V17.49 FAMILY HISTORY OF OTHER CARDIOVASCULAR DISEASES 05/06/2013 YIN COMPETENCY EVALUATED NURSE AIDE, SOWMYA S V18.0 FAMILY HISTORY OF DIABETES MELLITUS 05/06/2013 GIL DO, EUGENE K 346.00 MIGRAINE WITH AURA WITHOUT MENTION OF INTRACTABLE MIGRAINE WITHOUT MENTION OF STATUS MIGRAINOSUS 05/06/2013 GIL DO, EUGENE K 413.9 ANGINA NOS 05/06/2013 GIL DO, EUGENE K V17.49 FAMILY HISTORY OF OTHER CARDIOVASCULAR DISEASES 05/06/2013 GIL DO, EUGENE K V18.0 FAMILY HISTORY OF DIABETES MELLITUS 05/06/2013 ELIF COMPETENCY EVALUATED NURSE AIDE, KOREY R 346.00 MIGRAINE WITH AURA WITHOUT MENTION OF INTRACTABLE MIGRAINE WITHOUT MENTION OF STATUS MIGRAINOSUS 05/06/2013 ELIF COMPETENCY EVALUATED NURSE AIDE, KOREY R 413.9 ANGINA NOS 05/06/2013 ELIF COMPETENCY EVALUATED NURSE AIDE, KOREY R V17.49 FAMILY HISTORY OF OTHER CARDIOVASCULAR DISEASES 05/06/2013 ELIF COMPETENCY EVALUATED NURSE AIDE, KOREY R V18.0 FAMILY HISTORY OF DIABETES MELLITUS 05/06/2013 YIN COMPETENCY EVALUATED NURSE AIDE, SOWMYA S 346.00 MIGRAINE WITH AURA WITHOUT MENTION OF INTRACTABLE MIGRAINE WITHOUT MENTION OF STATUS MIGRAINOSUS 05/06/2013 YIN COMPETENCY EVALUATED NURSE AIDE, SOWMYA S 413.9 ANGINA NOS 05/06/2013 YIN COMPETENCY EVALUATED NURSE AIDE, SOWMYA S V17.49 FAMILY HISTORY OF OTHER CARDIOVASCULAR DISEASES 05/06/2013 YIN COMPETENCY EVALUATED NURSE AIDE, SOWMYA S V18.0 FAMILY HISTORY OF DIABETES MELLITUS 05/06/2013 YIN COMPETENCY EVALUATED NURSE AIDE, SOWMYA S 346.00 MIGRAINE WITH AURA WITHOUT MENTION OF INTRACTABLE MIGRAINE WITHOUT MENTION OF STATUS MIGRAINOSUS 05/06/2013 YIN COMPETENCY EVALUATED NURSE AIDE, SOWMYA S 413.9 ANGINA NOS 05/06/2013 YIN COMPETENCY EVALUATED NURSE AIDE, SOWMYA S V17.49 FAMILY HISTORY OF OTHER CARDIOVASCULAR DISEASES 05/06/2013 YIN COMPETENCY EVALUATED NURSE AIDE, SOWMYA S V18.0 FAMILY HISTORY OF DIABETES MELLITUS 05/06/2013 YIN COMPETENCY EVALUATED NURSE AIDE, SOWMYA S 346.00 MIGRAINE WITH AURA WITHOUT MENTION OF INTRACTABLE MIGRAINE WITHOUT MENTION OF STATUS MIGRAINOSUS 05/06/2013 YIN COMPETENCY EVALUATED NURSE AIDE, SOWMYA S 413.9 ANGINA NOS 05/06/2013 YIN COMPETENCY EVALUATED NURSE AIDE, SOWMYA S V17.49 FAMILY HISTORY OF OTHER CARDIOVASCULAR DISEASES 05/06/2013 YIN COMPETENCY EVALUATED NURSE AIDE, SOWMYA S V18.0 FAMILY HISTORY OF DIABETES MELLITUS 05/06/2013 YIN COMPETENCY EVALUATED NURSE AIDE, SOWMYA S 346.00 MIGRAINE WITH AURA WITHOUT MENTION OF INTRACTABLE MIGRAINE WITHOUT MENTION OF STATUS MIGRAINOSUS 05/06/2013 YIN COMPETENCY EVALUATED NURSE AIDE, SOWMYA S 413.9 ANGINA NOS 05/06/2013 YIN COMPETENCY EVALUATED NURSE AIDE, SOWMYA S V17.49 FAMILY HISTORY OF OTHER CARDIOVASCULAR DISEASES 05/06/2013 YIN COMPETENCY EVALUATED NURSE AIDE, SOWMYA S V18.0 FAMILY HISTORY OF DIABETES MELLITUS 08/06/2013 GIL DO, EUGENE K 272.4 DYSLIPIDEMIA 08/06/2013 GIL DO, EUGENE K 414.00 CAD 08/06/2013 GIL DO, EUGENE K 785.1 PALPITATIONS 08/06/2013 ELIF COMPETENCY EVALUATED NURSE AIDE, KOREY R 272.4 DYSLIPIDEMIA 08/06/2013 ELIF COMPETENCY EVALUATED NURSE AIDE, KOREY R 414.00 CAD 08/06/2013 ELIF COMPETENCY EVALUATED NURSE AIDE, KOREY R 785.1 PALPITATIONS 08/06/2013 YIN COMPETENCY EVALUATED NURSE AIDE, SOWMYA S 272.4 DYSLIPIDEMIA 08/06/2013 YIN COMPETENCY EVALUATED NURSE AIDE, SOWMYA S 414.00 CAD 08/06/2013 YIN COMPETENCY EVALUATED NURSE AIDE, SOWMYA S 785.1 PALPITATIONS 08/06/2013 YIN COMPETENCY EVALUATED NURSE AIDE, SOWMYA S 272.4 DYSLIPIDEMIA 08/06/2013 YIN COMPETENCY EVALUATED NURSE AIDE, SOWMYA S 414.00 CAD 08/06/2013 YIN COMPETENCY EVALUATED NURSE AIDE, SOWMYA S 785.1 PALPITATIONS 08/06/2013 YIN COMPETENCY EVALUATED NURSE AIDE, SOWMYA S 272.4 DYSLIPIDEMIA 08/06/2013 YIN COMPETENCY EVALUATED NURSE AIDE, SOWMYA S 414.00 CAD 08/06/2013 YIN COMPETENCY EVALUATED NURSE AIDE, SOWMYA S 785.1 PALPITATIONS 08/06/2013 YIN COMPETENCY EVALUATED NURSE AIDE, SOWMYA S 272.4 DYSLIPIDEMIA 08/06/2013 YIN COMPETENCY EVALUATED NURSE AIDE, SOWMYA S 414.00 CAD 08/06/2013 YIN COMPETENCY EVALUATED NURSE AIDE, SOWMYA S 785.1 PALPITATIONS 11/08/2013 ZITA WILLIAM, ROXANE Parikh Ot 785.1 PALPITATIONS 02/05/2014 ELIF COMPETENCY EVALUATED NURSE AIDE, KOREY R 599.0 URINARY TRACT INFECTION 02/05/2014 ELIF COMPETENCY EVALUATED NURSE AIDE, KOREY R 789.07 ABDOMINAL PAIN GENERALIZED 02/05/2014 YIN COMPETENCY EVALUATED NURSE AIDE, SOWMYA S 599.0 URINARY TRACT INFECTION 02/05/2014 YIN COMPETENCY EVALUATED NURSE AIDE, SOWMYA S 789.07 ABDOMINAL PAIN GENERALIZED 02/05/2014 YIN COMPETENCY EVALUATED NURSE AIDE, SOWMYA S 599.0 URINARY TRACT INFECTION 02/05/2014 YIN COMPETENCY EVALUATED NURSE AIDE, SOWMYA S 789.07 ABDOMINAL PAIN GENERALIZED 02/05/2014 YIN COMPETENCY EVALUATED NURSE AIDE, SOWMYA S 599.0 URINARY TRACT INFECTION 02/05/2014 YIN COMPETENCY EVALUATED NURSE AIDE, SOWMYA S 789.07 ABDOMINAL PAIN GENERALIZED 02/05/2014 YIN COMPETENCY EVALUATED NURSE AIDE, SOWMYA S 599.0 URINARY TRACT INFECTION 02/05/2014 YIN COMPETENCY EVALUATED NURSE AIDE, SOWMYA S 789.07 ABDOMINAL PAIN GENERALIZED 02/08/2014 NAILA WILLIAM, ELENA S Ot 540.9 ACUTE APPENDICITIS NOS 04/04/2014 ELIZABETH PUTNAM Ot 490 BRONCHITIS NOS 04/04/2014 ELIZABETH PUTNAM L Ot 724.5 BACKACHE NOS 04/04/2014 ELIZABETH PUTNAM Ot 780.60 FEVER, UNSPECIFIED 04/04/2014 ELIZABETH PUTNAM Ot 847.2 SPRAIN LUMBAR REGION 04/04/2014 ELIZABETH PUTNAM Ot E928.9 ACCIDENT NOS 04/07/2014 YIN COMPETENCY EVALUATED NURSE AIDE, SOWMYA S 780.60 FEVER, UNSPECIFIED 04/07/2014 YIN COMPETENCY EVALUATED NURSE AIDE, SOWMYA S 786.2 COUGH 04/07/2014 YIN COMPETENCY EVALUATED NURSE AIDE, SOWMYA S 780.60 FEVER, UNSPECIFIED 04/07/2014 YIN COMPETENCY EVALUATED NURSE AIDE, SOWMYA S 786.2 COUGH 04/07/2014 YIN COMPETENCY EVALUATED NURSE AIDE, SOWMYA S 780.60 FEVER, UNSPECIFIED 04/07/2014 YIN COMPETENCY EVALUATED NURSE AIDE, SOWMYA S 786.2 COUGH 04/07/2014 YIN COMPETENCY EVALUATED NURSE AIDE, SOWMYA S 780.60 FEVER, UNSPECIFIED 04/07/2014 YIN COMPETENCY EVALUATED NURSE AIDE, SWOMYA S 786.2 COUGH 06/09/2014 YIN COMPETENCY EVALUATED NURSE AIDE, SOWMYA S 307.42 INSOMNIA, PSYCHOPHYSIOLOGICAL 06/09/2014 YIN COMPETENCY EVALUATED NURSE AIDE, SOWMYA S 627.2 HOT FLASHES 06/09/2014 YIN COMPETENCY EVALUATED NURSE AIDE, SOWMYA S 307.42 INSOMNIA, PSYCHOPHYSIOLOGICAL 06/09/2014 YIN COMPETENCY EVALUATED NURSE AIDE, SOWMYA S 627.2 HOT FLASHES 06/09/2014 YIN COMPETENCY EVALUATED NURSE AIDE, SOWMYA S 307.42 INSOMNIA, PSYCHOPHYSIOLOGICAL 06/09/2014 YIN COMPETENCY EVALUATED NURSE AIDE, SOWMYA S 627.2 HOT FLASHES 09/12/2014 YIN COMPETENCY EVALUATED NURSE AIDE, SOWMYA S 346.00 MIGRAINE WITH AURA WITHOUT [...] INTRACT MGRN W/O STA 02/21/2016 SOWMYA ESQUEDA ACID STRENGTH INSPECTOR Ot 346.00 MIGRAINE W AURA W/O INTRACT MGRN W/O STA 02/21/2016 BECKIE REID MD Ot E78.5 HYPERLIPIDEMIA, UNSPECIFIED 02/21/2016 BECKIE REID MD Ot F17.210 NICOTINE DEPENDENCE, CIGARETTES, UNCOMPL 02/21/2016 BECKIE REID MD Ot I25.10 ATHSCL HEART DISEASE OF [place] CORONARY 02/21/2016 BECKIE REID MD Ot K21.9 GASTRO-ESOPHAGEAL REFLUX DISEASE WITHOUT 02/21/2016 BECKIE REID MD Ot R07.89 OTHER CHEST PAIN 02/21/2016 BECKIE REID MD Ot R51 HEADACHE 02/21/2016 BECKIE REID MD Ot E78.5 HYPERLIPIDEMIA, UNSPECIFIED 02/21/2016 BECKIE REID MD Ot F17.210 NICOTINE DEPENDENCE, CIGARETTES, UNCOMPL 02/21/2016 BECKIE REID MD Ot I25.10 ATHSCL HEART DISEASE OF [place] CORONARY 02/21/2016 BECKIE REID MD Ot K21.9 [...] AURA W/O INTRACT MGRN W/O STA 04/15/2016 SOWMYA ESQUEDA Ot 346.00 MIGRAINE W [...] FEVER, UNSPECIFIED 08/15/2016 ELIZABETH PUTNAM Ot 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 08/15/2016 ELIZABETH PUTNAM Ot Z79.899 OTHER GARBAGE WORKER (CURRENT) DRUG THERAPY 09/25/2018 ARIELLE CAMPUZANO MD Ot E78.00 PURE HYPERCHOLESTEROLEMIA, UNSPECIFIED 09/25/2018 ARIELLE CAMPUZANO MD Ot F17.210 NICOTINE DEPENDENCE, CIGARETTES, UNCOMPL 09/25/2018 ARIELLE CAMPUZANO MD Ot F41.9 ANXIETY DISORDER, UNSPECIFIED 09/25/2018 ARIELLE CAMPUZANO MD Ot G43.909 MIGRAINE, UNSP, NOT INTRACTABLE, WITHOUT 09/25/2018 ARIELLE CAMPUZANO MD Ot I25.10 ATHSCL HEART DISEASE OF [place] CORONARY 09/25/2018 ARIELLE CAMPUZANO MD Ot K21.9 GASTRO-ESOPHAGEAL REFLUX DISEASE WITHOUT 09/25/2018 ARIELLE CAMPUZANO MD Ot R10.13 EPIGASTRIC PAIN 09/25/2018 ARIELLE CAMPUZANO MD Ot R11.2 NAUSEA WITH VOMITING, UNSPECIFIED 09/25/2018 ARIELLE CAMPUZANO MD Ot Z88.5 ALLERGY STATUS TO NARCOTIC AGENT STATUS 09/25/2018 ARIELLE CAMPUZANO MD Ot Z88.8 ALLERGY STATUS TO OTH DRUG/MEDS/BIOL SUB 09/25/2018 ARIELLE CAMPUZANO MD Ot Z90.49 ACQUIRED ABSENCE OF OTHER SPECIFIED PART 09/25/2018 ARIELLE CAMPUZANO MD Ot Z90.710 ACQUIRED ABSENCE OF BOTH CERVIX AND UTER 09/25/2018 ARIELLE CAMPUZANO MD Ot Z91.012 ALLERGY TO EGGS 12/30/2018 MICHAEL SHAFER DO Ot E78.00 PURE HYPERCHOLESTEROLEMIA, UNSPECIFIED 12/30/2018 MICHAEL SHAFER DO Ot F17.210 NICOTINE DEPENDENCE, CIGARETTES, UNCOMPL 12/30/2018 MICHAEL SHAFER DO Ot F41.9 ANXIETY DISORDER, UNSPECIFIED 12/30/2018 MICHAEL SHAFER DO Ot G43.909 MIGRAINE, UNSP, NOT INTRACTABLE, WITHOUT 12/30/2018 MICHAEL SHAFER DO Ot I25.10 ATHSCL HEART DISEASE OF [place] CORONARY 12/30/2018 MICHAEL SHAFER DO Ot I25.2 OLD MYOCARDIAL INFARCTION 12/30/2018 MICHAEL SHAFER DO Ot K21.9 GASTRO-ESOPHAGEAL REFLUX DISEASE WITHOUT 12/30/2018 SONI JONES MICHAEL Sunitha Ot M54.2 CERVICALGIA 12/30/2018 SONI JONES MICHAEL Sunitha Ot M54.6 PAIN IN THORACIC SPINE 12/30/2018 SONI JONES MICHAEL Sunitha Ot M62.830 MUSCLE SPASM OF BACK 12/30/2018 SONI JONES MICHAEL Sunitha Ot Z82.49 FAMILY HX OF ISCHEM HEART DIS AND OTH DI 12/30/2018 SONI JONES MICHAEL Sunitha Ot Z87.19 PERSONAL HISTORY OF OTHER DISEASES OF TH 12/30/2018 SONI JONESPROA Sunitha Ot Z87.448 PERSONAL HISTORY OF OTHER DISEASES OF UR 12/30/2018 SONI MICHAEL JONES Ot Z88.5 ALLERGY STATUS TO NARCOTIC AGENT STATUS 12/30/2018 SONI DOMICHAEL Ot Z88.8 ALLERGY STATUS TO OTH DRUG/MEDS/BIOL SUB 12/30/2018 SONI JONES MICHAEL Sunitha Ot Z90.49 ACQUIRED ABSENCE OF OTHER SPECIFIED PART 12/30/2018 SONI MICHAEL Ot Z90.710 ACQUIRED ABSENCE OF BOTH CERVIX AND UTER 12/30/2018 SONI DOPROA Sunitha Ot Z95.9 PRESENCE OF CARDIAC AND VASCULAR IMPLANT 12/30/2018 SONI JONES MICHAEL Sunitha Ot Z98.890 OTHER SPECIFIED POSTPROCEDURAL STATES Procedures Code Description [place] [id number] E[place] 03/15/2013 CARDIOLOG CARDIOLOGY, 05/14/2013 65172 ROUTINE VENIPUNCTURE 06/02/2013 59491 EKG, TRACING (IN-HOUSE) 06/02/2013 66764 A1C (IN-HOUSE) 06/02/2013 88328 CBC 06/02/2013 79246 CMP 06/02/2013 [id number] GFR CALC (RESULT ONLY) 06/02/2013 25879 MAGNESIUM 06/02/2013 58347 LIPID PANEL 06/02/2013 54280 TSH 06/02/2013 88931 HOLTER MONITOR (OUTPATIENT) 08/06/2013 20085 ECHO 2D 08/06/2013 77990 OXIMETRY 08/06/2013 06986 OXIMETRY 08/09/2013 80024 HOLTER MONITOR (OUTPATIENT) 08/10/2013 62083 ECHO 2D 08/11/2013 15256 UA W/ CULTURE IF INDICATED 02/05/2014 20621 CULTURE URINE 02/09/2014 95537 A1C (IN-HOUSE) 07/18/[address] HEAD/BRAIN W/O & W/DYE 09/13/2014 84200 CBC 09/13/2014 [id number] GFR CALC (RESULT ONLY) 09/13/2014 60641 CMP 09/13/2014 67376 CRP 09/13/2014 Results Test Result Range Complete [...] Automated erythrocyte mean corpuscular hemoglobin concentration measurement (mass/volume) 33 g/dL 32-36 Automated erythrocyte distribution width ratio 13.3 % 10.0- 14.5 Automated blood platelet count (count/volume) 249 10*3/uL [...] Blood monocytes automated count (number/volume) 0.9 10*3 0.0- 1.0 Automated eosinophil count 0.2 10*3/uL 0.0-0.3 Automated blood basophil count (count/volume) 0.0 10*3/uL 0.0-0.1 Influenza virus A and B antigen detection - 08/14/16 15:00 FLU RESULT NEGATIVE FOR INFLUENZA A AND B ANTIGENS BY [facility] Complete blood count (CBC) with automated white blood cell (WBC) differential - 09/23/18 10:20 Blood leukocytes automated count (number/volume) 10.1 10*3/uL 4.3-11.0 Blood erythrocytes automated count (number/volume) 4.26 10*6/uL 4.35-5.85 Venous blood hemoglobin measurement (mass/volume) 13.1 g/dL 11.5-16.0 Blood hematocrit (volume fraction) 39 % 35-52 Automated erythrocyte mean corpuscular volume 92 [foz_us] 80-99 Automated erythrocyte mean corpuscular hemoglobin (mass per erythrocyte) 31 pg 25-34 Automated erythrocyte mean corpuscular hemoglobin concentration measurement (mass/volume) 33 g/dL 32-36 Automated erythrocyte distribution width ratio 13.4 % 10.0- 14.5 Automated blood platelet count (count/volume) 361 10*3/uL 130-400 Automated blood platelet mean volume measurement 10.7 [foz_us] 7.4-10.4 Automated blood neutrophils/100 leukocytes 50 % 42-75 Automated blood lymphocytes/100 leukocytes 41 % 12-44 Blood monocytes/100 leukocytes 7 % 0-12 Automated blood eosinophils/100 leukocytes 1 % 0-10 Automated blood basophils/100 leukocytes 0 % 0-10 Blood neutrophils automated count (number/volume) 5.0 10*3 1.8-7.8 Blood lymphocytes automated count (number/volume) 4.2 10*3 1.0-4.0 Blood monocytes automated count (number/volume) 0.7 10*3 0.0- 1.0 Automated eosinophil count 0.1 10*3/uL 0.0-0.3 Automated blood basophil count (count/volume) 0.0 10*3/uL 0.0-0.1 Comprehensive metabolic panel - 09/23/18 10:20 Serum or plasma sodium measurement (moles/volume) 139 mmol/L 135-145 Serum or plasma potassium measurement (moles/volume) 4.2 mmol/L 3.6-5.0 Serum or plasma chloride measurement (moles/volume) 103 mmol/L 98-107 Carbon dioxide 24 mmol/L 21-32 Serum or plasma anion gap determination (moles/volume) 12 mmol/L 5-14 Serum or plasma urea nitrogen measurement (mass/volume) 14 mg/dL 7-18 Serum or plasma creatinine measurement (mass/volume) 0.85 mg/dL 0.60-1.30 Serum or plasma urea nitrogen/creatinine mass ratio 16 NRG Serum or plasma creatinine measurement with calculation of estimated glomerular filtration rate > NRG Serum or plasma glucose measurement (mass/volume) 98 mg/dL 70-105 Serum or plasma calcium measurement (mass/volume) 9.8 mg/dL 8.5-10.1 Serum or plasma total bilirubin measurement (mass/volume) 0.3 mg/dL 0.1-1.0 Serum or plasma alkaline phosphatase measurement (enzymatic activity/volume) 114 U/L 40-136 Serum or plasma aspartate aminotransferase measurement (enzymatic activity/volume) 24 U/L 5-34 Serum or plasma alanine aminotransferase measurement (enzymatic activity/volume) 17 U/L 0-55 Serum or plasma protein measurement (mass/volume) 8.1 g/dL 6.4-8.2 Serum or plasma albumin measurement (mass/volume) 4.7 g/dL 3.2-4.5 Lipase - 09/23/18 10:20 Lipase 26 U/L 8-78 Encounters ACCT No. Visit Date/Time Discharge Status Pt. Type Provider Facility Loc./Unit Complaint [id number] 09/12/2014 15:44:00 09/12/2014 23:59:59 CLS Outpatient SOWMYA ESQUEDA APRN [id number] 07/18/2014 11:23:00 07/18/2014 23:59:59 CLS Outpatient SOWMYA ESQUEDA APRN [id number] 06/09/2014 11:44:00 06/09/2014 23:59:59 CLS Outpatient SOWMYA ESQUEDA APRN [id number] 04/07/2014 17:34:00 04/07/2014 23:59:59 CLS Outpatient SOWMYA ESQUEDA APRN [id number] 02/05/2014 10:26:00 02/05/2014 23:59:59 CLS Outpatient KOREY ASENCIO APRN [id number] 08/06/2013 08:55:00 08/06/2013 23:59:59 CLS Outpatient EUGENE GIL DO [id number] 06/02/2013 09:44:00 06/02/2013 23:59:59 CLS Outpatient SOWMYA ESQUEDA APRN [id number] 05/06/2013 15:09:00 Document Registration [id number] 03/15/2013 12:57:00 Document Registration [id number] 03/12/2013 08:10:00 Document Registration [id number] 12/27/2018 18:55:00 12/27/2018 20:40:00 DIS Outpatient SONI MICHAEL [facility] ER NECK/SPINAL PAIN,MIGRAINE [id number] 09/23/2018 10:07:00 09/23/2018 13:09:00 DIS Outpatient ARIELLE CAMPUZANO MD [facility] ER ABD/BACK PAIN [id number] 08/14/2016 14:01:00 08/14/2016 16:55:00 DIS Outpatient ELIZABETH PUTNAM [facility] ER COUGH/CONGESTION FEVER [id number] 02/20/2016 14:27:00 02/21/2016 15:45:00 DIS Inpatient FRANKLIN WILLIAM, BECKIE More [facility] ICU [id number] 01/05/2016 15:29:00 01/05/2016 23:59:59 CLS Outpatient ASHWINI HUDSON [employer] [facility] OCC SLIP AND FALL [id number] 09/13/2014 08:40:00 09/13/2014 23:59:59 CLS Outpatient SOWMYA ESQUEDA [employer] [facility] RAD [id number] 04/04/2014 13:40:00 04/04/2014 17:23:00 DIS Outpatient ELIZABETH PUTNAM [facility] ER [id number] 02/06/2014 15:00:00 02/08/2014 15:15:00 [id number] 08/10/2013 12:58:00 11/08/2013 00:01:00 DIS Outpatient ROXANE AHUMADA MD [facility] CARD [id number] 08/11/2013 14:10:00 08/11/2013 23:59:59 CLS Outpatient DONALD DUNHAM [facility] CARD [id number] 04/09/2013 08:17:00 04/09/2013 23:59:59 CLS Outpatient ELIZABETH PUTNAM [facility] RAD [id number] 04/08/2013 12:46:00 04/08/2013 17:30:00 DIS Outpatient ELIZABETH PUTNAM [facility] ER [id number] 02/02/2013 17:06:00 02/02/2013 18:09:00 DIS Emergency ELIZABETH PUTNAM [facility] ER [id number] 01/30/2013 11:11:00 01/30/2013 12:33:00 DIS Emergency MICHAEL SHAFER DO [facility] ER [id number] 04/15/2016 12:04:00 Document Registration [id number] 04/15/2016 12:03:00 Document Registration [id number] 12/06/2014 11:01:00 Document Registration [id number] 11/09/2013 13:00:00 Document Registration [id number] 08/23/2012 13:40:00 Document Registration [id number] 05/17/2012 16:51:00 Document Registration [id number] 05/06/2012 11:51:00 Document Registration [id number] 03/25/2012 19:54:00 Document Registration [id number] 02/16/2012 15:00:00 Document Registration [id number] 01/25/2012 13:08:00 Document Registration [id number] 08/23/2011 17:27:00 Document Registration [id number] 05/20/2010 20:13:00 Document Registration [id number] 05/18/2010 10:47:00 Document Registration
[2019-05-09] MEDS ORDERED: KETOROLAC 60 MG/2 ML VIAL IM STA (12:04)
[2019-05-09] MEDS ORDERED: ORPHENADRINE 60 MG/2 ML (NORFLEX) AMP IM STA (12:04)
--- NOTE | 2019-05-09 12:07 | ED Back Pain ---
General Chief Complaint: Hip/Pelvic Problems Stated Complaint: L HIP PAIN,POPPING Nursing Triage Note: PT PRESENTS TO ED WITH COMPLAINTS OF L HIP PAIN SINCE YESTERDAY. PT REPORTS LAST NIGHT SHE CHANGED POSITIONS WHEN SHE WAS SLEEPING AND FELT HER HIP POP AND HAS INCREASED PAIN AND LIMITED MOVEMENT SINCE. Nursing Sepsis Screen: No Definite Risk Source of Information: Patient, Other (friend) Exam Limitations: No Limitations History of Present Illness Date Seen by Provider: May 09, 2019 Time Seen by Provider: 11:55 Initial Comments 49-year-old female patient presents to the emergency department with complaints of low back pain radiating into the left hip and down the left lower extremity. Patient has a history of chronic lumbar radiculopathy/chronic left hip pain. Patient reports yesterday pain increased. Patient reports changing positions last night while sleeping and felt something pop in her left hip. Now has in creased pain, difficulty bearing weight on the left lower extremity, and tingling into the foot. Patient reports injuring her back several years ago when she fell at work. Denies taking Tylenol or ibuprofen today. Location: Lumbar Spine, Paraspinous Muscles Timing/Duration: Getting Worse Pain/Injury Location: Back Radiation: Buttocks (left), Feet (left), Lower Legs (left), Upper Legs (left) Method of Injury: Other (denies known recent injury.) Modifying Factors: Improves With Immobilization; Worse With Movement Associated Symptoms: muscle spasms; No fever, No weakness (denies muscle weakness), No numbness in legs/feet; tingling in legs/feet, lower back pain; No loss of bladder control, No loss of bowel control; other (difficulty standing and ambulating due to pain in the left hip) Allergies and Home Medications Allergies Coded Allergies: morphine (Verified Allergy, Intermediate, HIVES, SOA, PANCREAS SHUT DOWN, 02/20/16) egg (Verified Allergy, Unknown, 02/20/16) FROM UNCODED ALLERGY hydromorphone (Verified Allergy, Unknown, 04/26/17) tuberculin, purified protein deriva (Verified Allergy, Unknown, 02/20/16) Home Medications Acetaminophen/Diphenhydramine 1 Each Tablet, 2 EACH PO for SLEEP, (Reported) Cyclobenzaprine HCl 10 Mg Tablet, 10 MG PO Q8H Prescribed by: MICHAEL SHAFER on 12/27/182028 Cyclobenzaprine HCl 10 Mg Tablet, 10 MG PO Q8H PRN for SPASMS Prescribed by: ELIZABETH COHEN on 05/09/19 1340 Famotidine 20 Mg Tablet, 20 MG PO BID Prescribed by: ARIELLE TORRES on 09/23/18 1305 Methylprednisolone 4 Mg Tab.ds.pk, 4 MG PO UD Prescribed by: MICHAEL SHAFER on 12/27/182028 Omeprazole 20 Mg Tablet.dr, 20 MG PO DAILY Prescribed by: ARIELLE TORRES on 09/23/18 1305 Ondansetron 4 Mg Tab.rapdis, 4 MG PO Q4H PRN for NAUSEA/VOMITING Prescribed by: ARIELLE TORRES on 09/23/18 1305 Ondansetron 8 Mg Tab.rapdis, 8 MG PO Q6H PRN for NAUSEA/VOMITING Prescribed by: ELIZABETH COHEN on 05/09/19 1353 Prednisone 20 Mg Tab, 40 MG PO DAILY Prescribed by: ELIZABETH COHEN on 05/09/19 1340 Sulfamethoxazole/Trimethoprim 1 Each Tablet, 1 EACH PO BID Prescribed by: ARIELLE TORRES on 04/26/17 1842 Tramadol HCl 50 Mg Tablet, 50 MG PO Q4H Prescribed by: MICHAEL SHAFER on 12/27/182028 Tramadol HCl 50 Mg Tablet, 50 MG PO Q6H PRN for PAIN Prescribed by: ELIZABETH COHEN on 05/09/19 1340 Patient Home Medication List Home Medication List Reviewed: Yes Review of Systems Constitutional: no symptoms reported EENTM: no symptoms reported Respiratory: no symptoms reported Cardiovascular: no symptoms reported Gastrointestinal: No abdominal pain, No constipation, No diarrhea; loss of appetite, nausea; No vomiting Genitourinary: No decreased output, No dysuria, No frequency, No hematuria Musculoskeletal: see HPI, back pain, joint pain (left hip); No joint swelling, No neck pain Skin: no symptoms reported Psychiatric/Neurological: Denies Headache, Denies Numbness, Denies Paresthesia; Tingling; Denies Weakness All Other Systems Reviewed Negative Unless Noted: Yes (Negative excepted noted.) Past Zvydqgg-Npeqdm-Vnagkr Hx Past Med/Social Hx: Reviewed and Corrections made Patient Social History Alcohol Use: Denies Use Recreational Drug Use: No Smoking Status: Current Everyday Smoker Type Used: Cigarettes Recent Foreign Travel: No Contact w/Someone Who Travel: No Recent Infectious Disease Expo: No Recent Hopitalizations: No Physical Abuse: No Sexual Abuse: No Mistreated: No Fear: No Immunizations Up To Date Tetanus Booster (TDap): Unknown PED Vaccines UTD: No Seasonal Allergies Seasonal Allergies: No Past Medical History Surgeries: Yes (EGD, OVARIAN CYST REMOVAL; CARDIAC CATH--NO INTERVENTION) Appendectomy, Cardiac, Gallbladder, Hysterectomy, Oophorectomy Respiratory: No Currently Using CPAP: No Currently Using BIPAP: No Cardiac: Yes Coronary Artery Disease, Heart Attack, High Cholesterol Neurological: Yes Headaches /Migraines Reproductive Disorders: Yes (FIBROIDS) Female 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 Chronic left hip pain) Degenerate Disk Disease, Chronic Back Pain Endocrine: No HEENT: No Cancer: No Psychosocial: Yes Anxiety Integumentary: No Blood Disorders: No Family Medical History Reviewed Nursing Family Hx Cardiovascular disease Coronary thrombosis No Pertinent Family Hx, CAD Under 55 Years Old, Diabetes Physical Exam Vital Signs Vital Signs - First Documented 05/09/19 11:25 Temp 97.8 Pulse 100 Resp 20 B/P (MAP) 145/93 (110) Pulse Ox 96 Capillary Refill : Less Than 3 Seconds Height, Weight, BMI Height: 5'7.00" Weight: 149lbs. 0.0oz. 67.434734dl; 24.4 BMI Method:Stated General Appearance: No Apparent Distress, WD/WN HEENT: PERRL/EOMI, Pharynx Normal Neck: Full Range of Motion, Normal Inspection, Non Tender, Supple Cardiovascular: Regular Rate, Rhythm, No Edema, No Gallop, No Murmur, Normal Peripheral Pulses Respiratory: Lungs Clear, Normal Breath Sounds, No Accessory Muscle Use, No Respiratory Distress Peripheral Pulses: 2+ Dorsalis Pedis (R), 2+ Left Dors-Pedis (L), 2+ Radial Pulses (R), 2+ Radial Pulses (L) Gastrointestinal: Normal Bowel Sounds, No Organomegaly, No Pulsatile Mass, Non Tender, Soft Back: Normal Inspection, Decreased Range of Motion, Muscle Spasm (lumbar), Vertebral Tenderness (lumbar vertebral tenderness without swelling, ecchymosis, or stepoff deformity.) Extremity: Normal Capillary Refill, Normal Inspection, No Calf Tenderness, No Pedal Edema, Pelvis Stable, Other (generalized left hip TTP without swelling, ecchymosis, or deformity. Left thigh, left knee, left tib/fib, left ankle, and left foot non-tender. no evidence of swelling, ecchymosis, or deformity.) Neurologic/Psychiatric: Alert, Oriented x3, Normal Mood/Affect; No Motor Weakness; Sensory Deficit (pt reports slightly decreased sensation left lateral thigh.) Skin: Normal Color, Warm/Dry; No Cool, No Cyanosis, No Mottled Progress/Results/Core Measures Results/Orders My Orders Orders - ELIZABETH COHEN Ct Lumbar Spine Wo (05/09/19 12:04) Ketorolac Injection (Toradol Injection) (05/09/19 12:04) Orphenadrine Injection (Norflex Injectio (05/09/19 12:04) Pelvis With Left Hip 2-3 Views (05/09/19 12:07) Ondansetron Oral Dissolve Tab (Zofran (05/09/19 14:00) Tramadol Tablet (Ultram Tablet) (05/09/19 14:00) Medications Given in ED Current Medications Medications Dose Ordered Sig/Rachel Route Start Time Stop Time Status Last Admin Dose Admin Ondansetron HCl 4 mg ONCE ONCE PO 05/09/19 14:00 05/09/19 14:01 DC 05/09/19 14:05 4 MG Tramadol HCl 50 mg ONCE ONCE PO 05/09/19 14:00 05/09/19 14:01 DC 05/09/19 14:05 50 MG Vital Signs/I&O 05/09/19 05/09/19 11:25 14:05 Temp 97.8 97.8 Pulse 100 89 Resp 20 20 B/P (MAP) 145/93 (110) 136/85 (102) Pulse Ox 96 97 Blood Pressure Mean: 110 Diagnostic Imaging Diagonstic Imaging: CT Plain Films/CT/US/NM/MRI: other (lumbar spine) Comments CT LUMBAR SPINE WO PROCEDURE: CT lumbar spine without contrast. TECHNIQUE: Multiple contiguous axial images were obtained through the lumbar spine without the use of intravenous contrast. Sagittal and coronal reformations were then performed. Auto Exposure Controls were utilized during the CT exam to meet ALARA standards for radiation dose reduction. INDICATION: Left hip and low back pain. COMPARISON: CT thoracic and lumbar spine performed on 12/27/2018. FINDINGS: No fracture or acute osseous abnormality. Vertebral body heights are maintained. Sp inal alignment and intervertebral disc spaces are preserved. Mild facet hypertrophy is demonstrated in the lower lumbar spine. No prevertebral or paraspinal soft tissue abnormality is demonstrated. There is moderate calcified atherosclerotic plaque involving the abdominal aorta, without aneurysmal dilatation. The visualized abdominal viscera and bowel are unremarkable. IMPRESSION: No acute fracture or subluxation involving the lumbar spine. Dictated on workstation # [id number] Reviewed: Reviewed by Me (radiology report reviewed by me) Diagonstic Imaging: Xray Plain Films/CT/US/NM/MRI: pelvis, hip (left) Comments Draft Date of Exam:05/09/19 PELVIS WITH LEFT HIP 2-3 VIEWS INDICATION: Left hip pain since yesterday. [place] hip pop yesterday with increasing pain and limited range of motion. EXAMINATION: Pelvis/left hip 08/09/2019 FINDINGS: 2 views of the left hip with a frontal view of the pelvis. FINDINGS: There is no evidence for an acute fracture or dislocation. The joint spaces are well maintained. There is no significant soft tissue swelling. IMPRESSION: No acute process. Dictated on workstation # [id number] Reviewed: Reviewed by Me (radiology report reviewed by me) Departure Communication (Admissions) Patient seen and evaluated. CT lumbar spine and x-ray of the hip obtained. Patient was given Toradol and Norflex IM with mild improvement in symptoms. Patient was also given 1 dose of tramadol and Zofran in the emergency department. Diagnostic findings discussed with the patient. Plan for discharge to home with follow-up as an outpatient with her primary care provider. Impression Primary Impression: Acute exacerbation of chronic low back pain Additional Impression: Radiculopathy of leg Disposition: 01 HOME, SELF-CARE Condition: Improved Departure-Patient Inst. Decision time for Depature: 13:37 Referrals: [facility] (PCP) Primary Care Physician SOWMYA ESQUEDA (Family) Primary Care Physician Patient Instructions: Low Back Pain (DC), Radiculopathy (DC) Add. Discharge Instructions: All discharge instructions reviewed with patient and/or family. Voiced understanding. Medications as instructed. Ibuprofen 800 mg by mouth every 8 hours as needed for pain. Tylenol Extra Strength [id number] as directed for pain. Avoid standing for extended periods of time, sitting for extended periods of time, lifting greater than 20 pounds, or twisting 3-5 days. Increase activity slowly as tolerated. If no improvement in symptoms, follow-up with your primary care provider for possible need of an outpatient MRI of the lumbar spine. Use an ice pack or heating pad as needed for pain. Return to the emergency department for worsened symptoms, bowel incontinence, bladder incontinence, numbness of the genitals, inability to move the lower extremities, or any other concerns. Scripts Ondansetron (Ondansetron Odt) 8 Mg Tab.rapdis 8 MG PO Q6H PRN for NAUSEA/VOMITING, #10 TAB 0 Refills Prov: ELIZABETH COHEN 05/09/19 Tramadol HCl (Tramadol HCl) 50 Mg Tablet 50 MG PO Q6H PRN for PAIN, #10 TAB 0 Refills Prov: ELIZABETH COHEN 05/09/19 Cyclobenzaprine HCl (Cyclobenzaprine HCl) 10 Mg Tablet 10 MG PO Q8H PRN for SPASMS, #10 TAB 0 Refills Prov: ELIZABETH COHEN 05/09/19 Prednisone (Prednisone) 20 Mg Tab 40 MG PO DAILY, #10 TAB 0 Refills Prov: ELIZABETH COHEN 05/09/19 Work/School Note: Work Release Form Date Seen in the Emergency Department: May 09, 2019 Return to Work: May 10, 2019 Other Restrictions Listed Below: No sitting or standing for extended periods of time Restrictions: No lifting greater than 20 pounds or twisting x 3-5 days ELIZABETH COHEN May 09, 2019 12:07
--- NOTE | 2019-05-09 12:52 | Diagnostic Imaging Report ---
PROCEDURE: CT lumbar spine without contrast. TECHNIQUE: Multiple contiguous axial images were obtained through the lumbar spine without the use of intravenous contrast. Sagittal and coronal reformations were then performed. Auto Exposure Controls were utilized during the CT exam to meet ALARA standards for radiation dose reduction. INDICATION: Left hip and low back pain. COMPARISON: CT thoracic and lumbar spine performed on 12/27/2018. FINDINGS: No fracture or acute osseous abnormality. Vertebral body heights are maintained. Spinal alignment and intervertebral disc spaces are preserved. Mild facet hypertrophy is demonstrated in the lower lumbar spine. No prevertebral or paraspinal soft tissue abnormality is demonstrated. There is moderate calcified atherosclerotic plaque involving the abdominal aorta, without aneurysmal dilatation. The visualized abdominal viscera and bowel are unremarkable. IMPRESSION: No acute fracture or subluxation involving the lumbar spine. Dictated by: Dictated on workstation # [id number]
--- NOTE | 2019-05-09 12:54 | Diagnostic Imaging Report ---
INDICATION: Left hip pain since yesterday. [place] hip pop yesterday with increasing pain and limited range of motion. EXAMINATION: Pelvis/left hip 08/09/2019 FINDINGS: 2 views of the left hip with a frontal view of the pelvis. FINDINGS: There is no evidence for an acute fracture or dislocation. The joint spaces are well maintained. There is no significant soft tissue swelling. IMPRESSION: No acute process. Dictated by: Dictated on workstation # [id number]
[2019-05-09] MEDS ORDERED: PRD20T PO (13:40)
[2019-05-09] MEDS ORDERED: TRAM50TA2 PO (13:40)
[2019-05-09] MEDS ORDERED: CYCL10TA9 PO (13:40)
[2019-05-09] MEDS ORDERED: ONDA8TAB13 PO (13:53)
[2019-05-09] MEDS ORDERED: ONDANSETRON 4 MG (ZOFRAN) ORAL DISSOLVE TAB PO ONE (14:00)
[2019-05-09 14:05] VITALS: BP 136/85
== END 2019-05-09 14:05 | disposition home or self-care (01) ==
LOC: EDUNIT# 11:11 → ER 11:12
DX: M54.16 Radiculopathy, lumbar region (principal); G89.29 Other chronic pain; I25.10 Atherosclerotic heart disease of native coronary artery without angina pectoris; I25.2 Old myocardial infarction; E78.00 Pure hypercholesterolemia, unspecified; G43.909 Migraine, unspecified, not intractable, without status migrainosus; K21.9 Gastro-esophageal reflux disease without esophagitis; F41.9 Anxiety disorder, unspecified; F17.210 Nicotine dependence, cigarettes, uncomplicated; Z90.710 Acquired absence of both cervix and uterus; Z90.49 Acquired absence of other specified parts of digestive tract; Z88.5 Allergy status to narcotic agent; Z88.8 Allergy status to other drugs, medicaments and biological substances; Z82.49 Family history of ischemic heart disease and other diseases of the circulatory system
CPT/HCPCS: 72131

== ENCOUNTER → 2021-10-22 | Outpatient (REF) ==
[~2021-10-22] MED LIST changes: -ACET-2469 PO; +ACET-3075 PO; +CYCL10TA25 PO; -MINO100C2 PO; +MINO100C5 PO; +ONDA8TAB13 PO; -SULF1TAB35 PO; +SULF1TAB38 PO; +TRM50T PO
--- NOTE | 2021-10-22 11:15 | Diagnostic Imaging Report ---
INDICATION: Severe low back pain. TIME OF EXAM: 10:44 AM 3 views lumbar spine were obtained. FINDINGS: Curvature and alignment is normal. Vertebral body heights are well-maintained. No acute compression fracture is detected. Disc spaces are fairly well-maintained. There is lower lumbar facet arthropathy. There are atherosclerotic calcifications in the abdominal aorta. IMPRESSION: Lower lumbar facet arthropathy. No acute bony abnormality is detected. Dictated by: Dictated on workstation # [id number]
== END ==
LOC: OCC 10:25
PROVIDERS: ATTEND Nurse Practitioner Family
DX: M47.816 Spondylosis without myelopathy or radiculopathy, lumbar region (principal)
CPT/HCPCS: 72100

== ENCOUNTER 2022-08-19 13:05 | Emergency (ER) | payer SELFPAY ==
[~2022-08-19] VITALS: Ht 170 cm; Wt 68.0 kg
[~2022-08-19 13:05] MED LIST changes: -ASPI-789 PO; +ASPI1TAB23 PO; +OMEP20TA56 PO; -OMEP20TA7 PO
[2022-08-19 13:15] VITALS: BP 139/84
[2022-08-19] MEDS ORDERED: ACHD5005 PO (13:52)
[2022-08-19] MEDS ORDERED: LIDO700A45 TP (13:53)
--- NOTE | 2022-08-19 13:53 | ED Back Pain ---
General Chief Complaint: Back Problems Stated Complaint: LOWER BACK PAIN Nursing Triage Note: pt states low back pain, hx of, flet something "snap" while trying to change position to get comfortable, denies trauma. weakness in rt leg that is not normal History of Present Illness Date Seen by Provider: Aug 20, 2022 Time Seen by Provider: 13:20 Initial Comments Patient is a 52-year-old female who presents to the emergency department for evaluation of lower back pain that began earlier today. Patient states she was sitting for a prolonged period earlier today and she attempted to adjust her position to be more comfortable and felt a snapping sensation in her lower back. She states since then it has slowly worsened. She denies any other specific trauma to her lower back. She states she feels like she has some right leg weakness. States the pain does not radiate anywhere other than the middle of her lower back. She does have a history of lower back pain in the past but never of this severity. She denies any saddle anesthesia or bowel/bladder incontinence. States the pain is worse with movement, sitting, or ambulating. Has taken an Excedrin earlier for the pain with minimal improvement in symptoms. Allergies and Home Medications Allergies Coded Allergies: morphine (Verified Allergy, Intermediate, HIVES, SOA, PANCREAS SHUT DOWN, 02/20/16) egg (Verified Allergy, Unknown, 02/20/16) FROM UNCODED ALLERGY hydromorphone (Verified Allergy, Unknown, 04/26/17) tuberculin, purified protein deriva (Verified Allergy, Unknown, 02/20/16) Patient Home Medication List Home Medication List Reviewed: Yes Acetaminophen/Diphenhydramine (Tylenol Pm Ex-Strength Caplet) 1 Each Tablet, 2 EACH PO for SLEEP, (Reported) Entered as Reported by: ADRIEN BLOCK on 04/26/171807 Cyclobenzaprine HCl (Cyclobenzaprine HCl) 10 Mg Tablet, 10 MG PO Q8H Prescribed by: MICHAEL SHAFER on 12/27/182028 Cyclobenzaprine HCl (Cyclobenzaprine HCl) 10 Mg Tablet, 10 MG PO Q8H PRN for SPASMS Prescribed by: ELIZABETH COHEN on 05/09/19 1340 Famotidine (Pepcid) 20 Mg Tablet, 20 MG PO BID Prescribed by: ARIELLE TORRES on 09/23/18 1305 Hydrocodone Bit/Acetaminophen (HYDROcodone/APAP 5 MG/325 MG TAB) 1 Tab Tab, 1 TAB PO Q6H PRN for PAIN-SEVERE (8-10) Prescribed by: Master Patel on 08/19/22 1352 Lidocaine (Lidocaine 5% Patch) 5 % Adh..patch, 1 EACH TP Q12H PRN for Ne uropathic pain Prescribed by: Master Patel on 08/19/22 1353 Methylprednisolone (Medrol) 4 Mg Tab.ds.pk, 4 MG PO UD Prescribed by: MICHAEL SHAFER on 12/27/182028 Omeprazole (Omeprazole) 20 Mg Tablet.dr, 20 MG PO DAILY Prescribed by: ARIELLE TORRES on 09/23/18 1305 Ondansetron (Ondansetron Odt) 4 Mg Tab.rapdis, 4 MG PO Q4H PRN for NAUSEA/VOMITING Prescribed by: ARIELLE TORRES on 09/23/18 1305 Ondansetron (Ondansetron Odt) 8 Mg Tab.rapdis, 8 MG PO Q6H PRN for NAUSEA/VOMITING Prescribed by: ELIZABETH COHEN on 05/09/19 135 Prednisone (Prednisone) 20 Mg Tab, 40 MG PO DAILY Prescribed by: ELIZABETH COHEN on 05/09/19 1340 Sulfamethoxazole/Trimethoprim (Bactrim Ds Tablet) 1 Each Tablet, 1 EACH PO BID Prescribed by: ARIELLE TORRES on 04/26/17 1842 Tramadol HCl (Ultram) 50 Mg Tablet, 50 MG PO Q4H Prescribed by: MICHAEL SHAFER on 12/27/182028 Tramadol HCl (Tramadol HCl) 50 Mg Tablet, 50 MG PO Q6H PRN for PAIN Prescribed by: ELIZABETH COHEN on 05/09/19 1340 Review of Systems Constitutional: no symptoms reported EENTM: no symptoms reported Respiratory: no symptoms reported Cardiovascular: no symptoms reported Gastrointestinal: no symptoms reported Genitourinary: no symptoms reported Musculoskeletal: back pain Skin: no symptoms reported Psychiatric/Neurological: No Symptoms Reported Past [id number]-Ogkwcv Hx Patient Social History Tobacco Use?: Yes Tobacco type used: Cigarettes Smoking Status: Current Everyday Smoker Substance use?: No Alcohol Use?: No Immunizations Up To Date Tetanus Booster (TDap): Unknown PED Vaccines UTD: No Third COVID19 Vaccination Date: yes Seasonal Allergies Seasonal Allergies: No Past Medical History Surgery/Hospitalization HX: chronic back pain, hysterectomy, gallbladder, appendectomy Surgeries: Yes (EGD, OVARIAN CYST REMOVAL; CARDIAC CATH--NO INTERVENTION) Appendectomy, Cardiac, Gallbladder, Hysterectomy, Oophorectomy Respiratory: No Currently Using CPAP: No Currently Using BIPAP: No Cardiac: Yes Coronary Artery Disease, Heart Attack, High Cholesterol Neurological: Yes Headaches /Migraines Reproductive Disorders: Yes (FIBROIDS) Female 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 Chronic left hip pain) Degenerate Disk Disease, Chronic Back Pain Endocrine: No HEENT: No Cancer: No Psychosocial: Yes Anxiety Integumentary: No Blood Disorders: No Family Medical History Cardiovascular disease Coronary thrombosis No Pertinent Family Hx, CAD Under 55 Years Old, Diabetes Physical Exam Vital Signs Vital Signs - First Documented 08/19/22 13:15 Temp 36.9 Pulse 111 Resp 22 B/P (MAP) 139/84 (102) Pulse Ox 96 O2 Delivery Room Air Capillary Refill : Less Than 3 Seconds Height, Weight, BMI Height: 5'7.00" Weight: 149lbs. 0.0oz. 67.917694xa; 23.00 BMI Method:Stated General Appearance: No Apparent Distress, WD/WN HEENT: PERRL/EOMI, TMs Normal, Normal ENT Inspection, Pharynx Normal Neck: Full Range of Motion, Normal Inspection, Non Tender, Supple Cardiovascular: Regular Rate, Rhythm, Normal Peripheral Pulses Respiratory: Chest Non Tender, Lungs Clear, Normal Breath Sounds, No Accessory Muscle Use, No Respiratory Distress Gastrointestinal: Normal Bowel Sounds, Non Tender, Soft Back: No Vertebral Tenderness, Decreased Range of Motion Extremity: Normal Range of Motion, Non Tender, No Calf Tenderness Neurologic/Psychiatric: Alert, Oriented x3, No Motor/Sensory Deficits, Normal 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 No significant asymmetry of strength noted in lower extremities. Patient is able to ambulate. She denies any saddle anesthesia or bowel/bladder incontinence. Also denies any history of diabetes or IV drug use. Straight leg raise is negative bilaterally. She does have some paraspinal tenderness to palpation of the lumbar spine. No midline tenderness noted. With lack of any preceding high-energy trauma, imaging at th is time seems of low diagnostic utility. This was discussed with patient and she agreed with holding off on imaging for now. I discussed that if the symptoms persist she may need an MRI as an outpatient as this would have greater likelihood of seeing any disc herniation, stenosis, nerve irritation, or any other soft tissue etiology of the pain. Low suspicion for epidural abscess or hematoma at this time. No cauda equina symptoms. Patient was given an IM dose of ketorolac as well as a Lortab. She will be discharged home with a short prescription of analgesia. Discussed importance of follow-up with PCP. Return precautions for urgent symptomology discussed. Patient verbalized understanding. Departure Impression Primary Impression: Lumbar pain Disposition: 01 HOME, SELF-CARE Condition: Stable Departure-Patient Inst. Decision time for Depature: 13:50 Referrals: [facility] [place] (PCP) Primary Care Physician SOWMYA ESQUEDA (Family) Primary Care Physician Patient Instructions: Low Back Pain (DC) Add. Discharge Instructions: Will likely also be helpful if you take 600 mg of ibuprofen (Motrin/Advil) every 6 hours to help with pain control. All discharge instructions reviewed with patient and/or family. Voiced understanding. Scripts Lidocaine (Lidocaine 5% Patch) 5 % Adh..patch 1 EACH TP Q12H PRN for Neuropathic pain MDD 2 for 3 Days, #6 PATCH 2 patches max for 12 hours, then 12 hours patch-free period. Prov: MASTER PATEL MANAGER HARDWARE 08/19/22 Hydrocodone Bit/Acetaminophen (HYDROcodone/APAP 5 MG/325 MG TAB) 1 Tab Tab 1 TAB PO Q6H PRN for PAIN-SEVERE (8-10) for 3 Days, #12 TAB 0 Refills Prov: MASTER PATEL APRN 08/19/22 MASTER PATEL APRN Aug 19, 2022 13:53
[2022-08-19] MEDS ORDERED: HYDROcodone/APAP 5 MG/325 MG (LORTAB) TAB PO ONE (14:00)
[2022-08-19] MEDS ORDERED: KETOROLAC 30 MG/ML VIAL IM ONE (14:00)
== END 2022-08-19 14:15 | disposition home or self-care (01) ==
LOC: EDUNIT# 13:05 → ER 13:08
DX: M54.50 Low back pain, unspecified (principal); F17.210 Nicotine dependence, cigarettes, uncomplicated; Z88.5 Allergy status to narcotic agent
CPT/HCPCS: 99284

== ENCOUNTER 2022-09-25 08:12 | Emergency (ER) | payer SELFPAY ==
[~2022-09-25] VITALS: Ht 162 cm; Wt 68.0 kg
[~2022-09-25 08:12] MED LIST changes: +LIDO700A45 TP
--- NOTE | 2022-09-25 08:20 | ED Chest Pain ---
General Chief Complaint: Chest Pain Stated Complaint: CHEST PAINS Source: patient Exam Limitations: no limitations History of Present Illness Date Seen by Provider: Sep 25, 2022 Time Seen by Provider: 08:20 Initial Comments Patient is a 52-year-old female who presents to the emergency room with a chief complaint of sharp left sternal chest pain that radiated across her chest and also up into her neck and into her arms. 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 It occurred approximately 30 minutes prior to arrival. She states the pain lasted for about 5 minutes. It was both sharp and heavy at the same time. She states that she is always nauseous. She chews yadn-vyq-mhxvejw nausea tablets regularly. No shortness of breath or sweating. She is compl etely pain-free on arrival but continues to have nausea. She has never had pain like this before. She has had previous heart catheterization in 2009 and then another cardiac work-up in 2013. She is not on any daily medications because she cannot afford them. She has seen Shawna Esqueda through [facility] but it has been "years". She had COVID about a month and a half ago. No recent travel or prolonged immobility. No history of blood clot. She states her mother from heart issues at age 47. Her father also had cardiac problems in his early 50s. No current fevers, chills, flulike symptoms. No productive cough. She is a smoker. All other review of systems reviewed and negative except as stated Timing/Duration: 1/2 hour Severity/Quality: severe, pressure, sharp Location: central (left of sternum) Radiation: jaw (left neck; across chest and arms) Activities at Onset: activity Prior CP/Workup: cardiac cath ASA po MAINTENANCE JOB TITLES: No NTG SL MAINTENANCE JOB TITLES: No Associated Symptoms: nausea/vomiting Allergies and Home Medications Allergies Coded Allergies: morphine (Verified Allergy, Intermediate, HIVES, SOA, PANCREAS SHUT DOWN, 02/20/16) egg (Verified Allergy, Unknown, 02/20/16) FROM UNCODED ALLERGY hydromorphone (Verified Allergy, Unknown, 04/26/17) tuberculin, purified protein deriva (Verified Allergy, Unknown, 02/20/16) Patient Home Medication List Home Medication List Reviewed: Yes Acetaminophen/Diphenhydramine (Tylenol Pm Ex-Strength Caplet) 1 Each Tablet, 2 EACH PO for SLEEP, (Reported) Entered as Reported by: ADRIEN BLOCK on 04/26/17 180 Cyclobenzaprine HCl (Cyclobenzaprine HCl) 10 Mg Tablet, 10 MG PO Q8H Prescribed by: MICHAEL SHAFER on 12/27/182028 Cyclobenzaprine HCl (Cyclobenzaprine HCl) 10 Mg Tablet, 10 MG PO Q8H PRN for SPASMS Prescribed by: ELIZABETH COHEN on 05/09/19 134 Famotidine (Pepcid) 20 Mg Tablet, 20 MG PO BID Prescribed by: ARIELLE TORRES on 09/23/18 130 Hydrocodone Bit/Acetaminophen (HYDROcodone/APAP 5 MG/325 MG TAB) 1 Tab Tab, 1 TAB PO Q6H PRN for PAIN-SEVERE (8-10) Prescribed by: Master Patel on 08/19/22 1352 Lidocaine (Lidocaine 5% Patch) 5 % Adh..patch, 1 EACH TP Q12H PRN for Neuropathic pain Prescribed by: Master Patel on 08/19/22 1353 Methylprednisolone (Medrol) 4 Mg Tab.ds.pk, 4 MG PO UD Prescribed by: MICHAEL SHAFER on 12/27/182028 Omeprazole (Omeprazole) 20 Mg Tablet.dr, 20 MG PO DAILY Prescribed by: ARIELLE TORRES on 09/23/18 1305 Ondansetron (Ondansetron Odt) 4 Mg Tab.rapdis, 4 MG PO Q4H PRN for NAUSEA/VOMITING Prescribed by: ARIELLE TORRES on 09/23/18 1305 Ondansetron (Ondansetron Odt) 8 Mg Tab.rapdis, 8 MG PO Q6H PRN for NAUSEA/VOMITING Prescribed by: ELIZABETH COHEN on 05/09/19 135 Prednisone (Prednisone) 20 Mg Tab, 40 MG PO DAILY Prescribed by: ELIZABETH COHEN on 05/09/19 1340 Sulfamethoxazole/Trimethoprim (Bactrim Ds Tablet) 1 Each Tablet, 1 EACH PO BID Prescribed by: ARIELLE TORRES on 04/26/17 1842 Tramadol HCl (Ultram) 50 Mg Tablet, 50 MG PO Q4H Prescribed by: MICHAEL SHAFER on 12/27/182028 Tramadol HCl (Tramadol HCl) 50 Mg Tablet, 50 MG PO Q6H PRN for PAIN Prescribed by: ELIZABETH COHEN on 05/09/19 1340 Review of Systems Review of Systems Constitutional: see HPI EENTM: No Symptoms Reported Respiratory: No Symptoms Reported Cardiovascular: Chest Pain Gastrointestinal: Nausea Genitourinary: No Symptoms Reported Musculoskeletal: no symptoms reported Skin: no symptoms reported Psychiatric/Neurological: Anxiety All Other Systems Reviewed Negative Unless Noted: Yes Past Tcynhvi-Fnktgm-Eelbjb Hx Patient Social History Tobacco Use?: Yes Tobacco type used: Cigarettes Smoking Status: Current Everyday Smoker Use of E-Cig and/or Vaping dev: No Substance use?: No Alcohol Use?: No Pt feels they are or have been: No Immunizations Up To Date Tetanus Booster (TDap): Unknown PED Vaccines UTD: No First/Initial COVID19 Vaccinat: yes Second COVID19 Vaccination Ranulfo: yes Third COVID19 Vaccination Date: yes Seasonal Allergies Seasonal Allergies: No Past Medical History Surgery/Hospitalization HX: chronic back pain, hysterectomy, gallbladder, appendectomy Surgeries: Yes (EGD, OVARIAN CYST REMOVAL; CARDIAC CATH--NO INTERVENTION) Appendectomy, Cardiac, Gallbladder, Hysterectomy, Oophorectomy Respiratory: No Currently Using CPAP: No Currently Using BIPAP: No Cardiac: Yes Coronary Artery Disease, Heart Attack, High Cholesterol Neurological: Yes Headaches /Migraines Reproductive Disorders: Yes (FIBROIDS) Female 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 Chronic left hip pain) Degenerate Disk Disease, Chronic Back Pain Endocrine: No HEENT: No Cancer: No Psychosocial: Yes Anxiety Integumentary: No Blood Disorders: No Family Medical History Cardiovascular disease Coronary thrombosis No Pertinent Family Hx, CAD Under 55 Years Old, Diabetes Physical Exam Vital Signs Vital Signs - First Documented 09/25/22 08:13 Temp 36.4 Pulse 122 Resp 20 B/P (MAP) 166/83 (110) Pulse Ox 95 O2 Delivery Room Air Capillary Refill : Height, Weight, BMI Height: 5'7.00" Weight: 149lbs. 0.0oz. 67.191468gt; 23.00 BMI Method:Stated General Appearance: No Apparent Distress, WD/WN, Anxious HEENT: PERRL/EOMI Neck: Normal Inspection Respiratory: Lungs Clear, Normal Breath Sounds, No Accessory Muscle Use, No Respiratory Distress Cardiovascular: Regular Rate, Rhythm, Normal Peripheral Pulses, Systolic Murmur (soft systolic murmur heard best at right upper sternal border) Gastrointestinal: Normal Bowel Sounds, Non Tender, Soft Extremity: Normal Capillary Refill, Normal Inspection, Normal Range of Motion, Non Tender, No Calf Tenderness, No Pedal Edema Neurologic/Psychiatric: Alert, Oriented x3, No Motor/Sensory Deficits, 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 Skin: Normal Color, Warm/Dry Progress/Results/Core Measures Results/Orders Lab Results Laboratory Tests Test 09/25/22 08:18 09/25/22 11:15 Range/Units White Blood Count 10.8 4.3-11.0 10^3/uL Red Blood Count 4.03 3.80-5.11 10^6/uL Hemoglobin 12.5 11.5-16.0 g/dL Hematocrit 37 35-52 % Mean Corpuscular Volume 93 80-99 fL Mean Corpuscular Hemoglobin 31 25-34 pg Mean Corpuscular Hemoglobin Concent 34 32-36 g/dL Red Cell Distribution Width 13.6 10.0-14.5 % Platelet Count 356 130-400 10^3/uL Mean Platelet Volume 10.2 9.0-12.2 fL Immature Granulocyte % (Auto) 0 % Neutrophils (%) (Auto) 49 42-75 % Lymphocytes (%) (Auto) 42 12-44 % Monocytes (%) (Auto) 7 0-12 % Eosinophils (%) (Auto) 2 0-10 % Basophils (%) (Auto) 0 0-10 % Neutrophils # (Auto) 5.3 1.8-7.8 10^3/uL Lymphocytes # (Auto) 4.5 H 1.0-4.0 10^3/uL Monocytes # (Auto) 0.8 0.0-1.0 10^3/uL Eosinophils # (Auto) 0.2 0.0-0.3 10^3/uL Basophils # (Auto) 0.0 0.0-0.1 10^3/uL Immature Granulocyte # (Auto) 0.0 0.0-0.1 10^3/uL Prothrombin Time 12.7 12.2-14.7 SEC INR Comment 0.9 0.8-1.4 Activated Partial Thromboplast Time 34 24-35 SEC Sodium Level 136 135-145 MMOL/L Potassium Level 4.1 3.6-5.0 MMOL/L Chloride Level 104 98-107 MMOL/L Carbon Dioxide Level 21 21-32 MMOL/L Anion Gap 11 5-14 MMOL/L Blood Urea Nitrogen 11 7-18 MG/DL Creatinine 0.77 0.60-1.30 MG/DL Estimat Glomerular Filtration Rate 92 BUN/Creatinine Ratio 14 Glucose Level 87 70-105 MG/DL Calcium Level 9.4 8.5-10.1 MG/DL Corrected Calcium 9.2 8.5-10.1 MG/DL Magnesium Level 2.0 1.6-2.4 MG/DL Total Bilirubin 0.2 0.1-1.0 MG/DL Aspartate Amino Transf (AST/SGOT) 14 5-34 U/L Alanine Aminotransferase (ALT/SGPT) 18 0-55 U/L Alkaline Phosphatase 93 40-136 U/L Myoglobin 34.3 10.0-92.0 NG/ML Troponin I < 0.028 < 0.028 <0.028 NG/ML Total Protein 7.7 6.4-8.2 GM/DL Albumin 4.3 3.2-4.5 GM/DL My Orders Orders - BORIS CHI MD Ekg Tracing (09/25/22 08:14) Cbc With Automated Diff (09/25/22 08:31) Magnesium (09/25/22 08:31) Chest 1 View, Ap/Pa Only (09/25/22 08:31) Comprehensive Metabolic Panel (09/25/22 08:31) Myoglobin Serum (09/25/22 08:31) Protime With Inr (09/25/22 08:31) Partial Thromboplastin Time (09/25/22 08:31) O2 (09/25/22 08:31) Monitor-Rhythm Ecg Trace Only (09/25/22 08:31) Lipid Panel (09/26/22 06:00) Ed Iv/Invasive Line Start (09/25/22 08:31) Troponin I Marin (09/25/22 08:31) Aspirin Chewable Tablet (Baby Aspirin Ch (09/25/22 08:45) Ondansetron Injection (Zofran Injectio (09/25/22 08:45) Troponin I Marin (09/25/22 11:26) Medications Given in ED Current Medications Medications Dose Ordered Sig/Rachel Route Start Time Stop Time Status Last Admin Dose Admin Aspirin 324 mg ONCE ONCE PO 09/25/22 08:45 09/25/22 08:46 DC 09/25/22 08:35 324 MG Ondansetron HCl 4 mg ONCE ONCE IVP 09/25/22 08:45 09/25/22 08:46 DC 09/25/22 08:36 4 MG Vital Signs/I&O 09/25/22 08:13 Temp 36.4 Pulse 122 Resp 20 B/P (MAP) 166/83 (110) Pulse Ox 95 O2 Delivery Room Air Progress Progress Note : Time: 12:05 Progress Note Patient seen and evaluated, 52-year-old female with chest pain today. Evaluation included cardiac "protocol" with CBC, chemistry, troponin coagulation profile. Chest x-ray EKG. EKG is reviewed and shows no evidence of ST segment elevation NE or ST segment depression. Her vital signs have remained stable. Serial troponins x2 are negative approximately 4 hours from the onset of her pain which was previous. Patient had no accompanying symptoms of diaphoresis or shortness of breath with the pain. She is at somewhat of increased risk with her history of hypercholesterolemia and smoking. I strongly recommended that she continue to try and quit smoking, follow-up with her primary care provider to establish a quit date and possibly some medications around the anxiety of quitting. I recommended also that she follow-up with a car inspector, I will put Dr. Lima's contact information on her discharge paperwork. She has remained asymptomatic throughout her course here in the emergency department. I reiterated that this visit did not establish that she has no cardiac risk. I advised her that she does indeed have risk but she has not had a heart attack today. This is why she needs further evaluation with stress test. Patient is comfortable with the plan of care. All questions are sought and answered. Initial ECG Impression Date: Sep 25, 2022 Initial ECG Impression Time: 08:20 Initial ECG Rate: 110 Initial ECG Rhythm: S.Tach Initial ECG Intervals: Normal Initial ECG Impression: Normal Diagnostic Imaging Diagonstic Imaging: Xray Plain Films/CT/US/NM/MRI: chest Comments [facility] [place], [place] NAME: TYE [facility]DEN [facility] REC#: [id number] PT STATUS: REG ER : 1970 PHYSICIAN: BORIS CHI MD ADMIT DATE: 09/25/22/ER Draft Date of Exam:09/25/22 CHEST 1 VIEW, AP/PA ONLY Indication: Chest pain. Time of Exam: 8:37 AM Correlation is made with prior chest 02/20/2016. Findings: The heart size is normal. The pulmonary vascularity is unremarkable. The lungs are clear. No infiltrate, effusion or pneumothorax is detected. Impression: No acute cardiopulmonary process is detected. Dictated on workstation # [id number] Dict: 09/25/2249 Trans: 09/25/2251 [id number] Interpreted by: PRAVEEN MENDIETA MD Electronically signed by: Counseling-Symptomatic: 3-10 Minutes Follow-up with PCP to: Discuss Further Options Departure Impression Primary Impression: Chest pain Qualified Codes: R07.9 - Chest pain, unspecified Additional Impressions: Tobacco use disorder History of hypercholesterolemia Disposition: HOME, SELF-CARE Condition: Stable Departure-Patient Inst. Decision time for Depature: 12:08 Referrals: [facility] (PCP) Primary Care Physician SHAWNA ESQUEDA (Family) Primary Care Physician ROXANE LIMA MD Patient Instructions: Quitting Smoking, Chest Pain (DC) Add. Discharge Instructions: Start taking a baby aspirin daily. Please call your primary care provider at [facility] to get reestablished on your cholesterol medication as well as blood pressure medication if they determined this is needed. Continue to try and quit smoking, talk to your primary care provider about setting a quit date and a plan for stopping. If you have any return of chest pain especially with shortness of breath, sweating, vomiting please return immediately to the emergency room for reevaluation. I have also put Dr. Lima's contact information he is our car inspector on-call melody [facility]dom. I do believe it would benefit you to schedule a stress test to further evaluate your heart function. Work/School Note: Work Release Form Date Seen in the Emergency Department: Sep 25, 2022 Return to Work: Sep 26, 2022 Copy Copies To 1: EUGENE GIL DO Copies To 2: ROXANE LIMA MD, KATHRYN M MD Sep 25, 2022 08:20
[2022-09-25 08:38] LABS: BASOPHILS % (AUTO) 0 % (0-10); EOSINOPHILS # (AUTO) 0.2 10^3/uL (0.0-0.3); EOSINOPHILS % (AUTO) 2 % (0-10); HEMATOCRIT 37 % (35-52); HEMOGLOBIN 12.5 g/dL (11.5-16.0); LYMPHOCYTES # (AUTO) 4.5 10^3/uL (1.0-4.0); LYMPHOCYTES % (AUTO) 42 % (12-44); MEAN CORPUSCULAR HEMOGLOBIN 31 pg (25-34); MEAN CORPUSCULAR HGB CONC 34 g/dL (32-36); MEAN CORPUSCULAR VOLUME 93 fL (80-99); MEAN PLATELET VOLUME 10.2 fL (9.0-12.2); MONOCYTES # (AUTO) 0.8 10^3/uL (0.0-1.0); MONOCYTES % (AUTO) 7 % (0-12); NEUTROPHILS # (AUTO) 5.3 10^3/uL (1.8-7.8); NEUTROPHILS % (AUTO) 49 % (42-75); PLATELET COUNT 356 10^3/uL (130-400); WHITE BLOOD COUNT 10.8 10^3/uL (4.3-11.0)
[2022-09-25 08:44] LABS: ALBUMIN 4.3 GM/DL (3.2-4.5); POTASSIUM 4.1 MMOL/L (3.6-5.0)
[2022-09-25] MEDS ORDERED: ONDANSETRON 4 MG/2 ML (SDV) Z0FRAN IVP ONE (08:45)
[2022-09-25] MEDS ORDERED: ASPIRIN 81 MG CHEW (CHILDREN'S ASA) PO ONE (08:45)
[2022-09-25 08:46] LABS: CALCIUM 9.4 MG/DL (8.5-10.1)
[2022-09-25 08:47] LABS: TOTAL PROTEIN 7.7 GM/DL (6.4-8.2)
[2022-09-25 08:48] LABS: BILIRUBIN,TOTAL 0.2 MG/DL (0.1-1.0)
[2022-09-25 08:50] LABS: CREATININE SERUM 0.77 MG/DL (0.60-1.30); INR 0.9 (0.8-1.4); PROTHROMBIN TIME PATIENT 12.7 SEC (12.2-14.7)
--- NOTE | 2022-09-25 08:51 | Diagnostic Imaging Report ---
Indication: Chest pain. Time of Exam: 8:37 AM Correlation is made with prior chest 02/20/2016. Findings: The heart size is normal. The pulmonary vascularity is unremarkable. The lungs are clear. No infiltrate, effusion or pneumothorax is detected. Impression: No acute cardiopulmonary process is detected. Dictated by: Dictated on workstation # [id number]
[2022-09-25 12:22] VITALS: BP 139/70
== END 2022-09-25 12:22 | disposition home or self-care (01) ==
LOC: EDUNIT# 08:12 → ER 08:14
DX: R07.89 Other chest pain (principal); F17.210 Nicotine dependence, cigarettes, uncomplicated; Z86.39 Personal history of other endocrine, nutritional and metabolic disease; Z98.61 Coronary angioplasty status; Z82.49 Family history of ischemic heart disease and other diseases of the circulatory system; Z86.16 Personal history of COVID-19
CPT/HCPCS: 36415; 71045; 80053; 83735; 83874; 84484; 85025; 85610; 85730; 93005; 93041